=== PATIENT | female | born 2000 | race Caucasian/White ===

== ENCOUNTER → 2023-10-23 15:14 | Outpatient (CLI) | payer OTHER, SELFPAY ==
--- NOTE | 2023-10-23 | DI.US.S_ITS ---
PROCEDURE: US OB >= 14 WEEKS FETUS INDICATIONS: 20 WEEK ANATOMY SCAN OUTSIDE/PRIOR DATING DATA: Last menstrual period (LMP): June 02, 2023. LMP-based estimated date of delivery (WILLIAM): March 08, 2024. First dating scan (date and location): October 23, 2023. Estimated date of delivery (WILLIAM) from first dating scan: March 04, 2024 TECHNIQUE: Real-time scanning was performed of the fetus, with image documentation and biometric measurements. Endovaginal scanning: Not performed COMPARISON: None. FINDINGS: General: A single living intrauterine gestation is present. Presentation: Vertex. Placenta: Placental position is posterior , without previa. Amniotic fluid index: 14.9 cm, normal range is 5-24 cm. Single deepest vertical pocket is 4.9 cm. heart rate: 141 beats per minute. Maternal cervical canal: 5.3 cm long. Normal lower limit is 2.5 cm. biometrics: Biparietal diameter: 4.9 cm, 20 weeks, 6 days Head circumference: 18.1 cm, 20 weeks, 4 days Abdominal circumference: 15.7 cm, 20 weeks, 6 days Femur length: 3.7 cm, 21 weeks, 4 days Clinically estimated gestational age: 20 weeks, 3 days Composite gestational age from present scan: 21 weeks, 0 days Estimated weight and percentile: 400 g, 82% Anatomic survey: Neuro: Ventricles are non-dilated at less than 10 mm. Cisterna magna is normal at 3-11 mm. Cerebellum is normal in size and morphology. Nuchal skin fold: Normal at less than 6 mm between 14-21 weeks gestational age. Face: Nose and lips, facial profile are normal. Spine: No evidence for spina bifida. Heart: 4-chambered heart is present, with normal ventricular outflow tracts. Diaphragm: Diaphragm is intact. Stomach: Left-sided stomach is present. Kidneys: No hydronephrosis. Normal is less than 5 mm in 2nd trimester, less than 7 mm in 3rd trimester. Cord: 3-vessel cord has orthotopic insertion. Bladder: Normal in size. Extremities: All 4 extremities identified. IMPRESSION: 1. Single live intrauterine gestation with a composite gestational age of 21 weeks, 0 days by today's scan. This is concordant with LMP. 2. No sonographic anatomic abnormalities. We strive to produce accurate, complete, and clear reports of imaging services. To assist us in improving patient care, this report was composed using standard report templates and voice recognition software. Therefore, it may contain abnormal punctuation, insertions and/or omissions. Occasional wrong-word or sound-alike substitutions may occur. Though we review the report and make efforts to correct it, we do recommend that the report be read carefully in proper context to recognize any text inaccuracies. Dictated by: Janeth Griffitsh M.D. on 10/24/2023 at 11:01 Approved by: Janeth Griffiths M.D. on 10/24/2023 at 11:04
--- NOTE | 2023-10-28 23:07 | P.TNLD_ITS ---
Visit Information Visit Information Date of evaluation: 10/28/23 Primary OB Provider: Gavi Waggoner On-call OB Provider: Gavi Waggoner Reason for Evaluation: Yes rupture of membranes Comments/Additional reasons for admission: Jeff is a 23 year old, 21 week . She noticed more than her normal water- like discharge earlier today and started having mild/moderate lower pelvic cramping with one sharp/stabbing UR quadrant episode of pain on her way over to triage. She is worried. Accompanied by a friend. Vital Signs Vital Signs: BP: 117/65 HR: 93 T (temporal): 36.5 RR: 20/min Review of Systems Review of Systems Narrative: All systems are WNL, except for Genitourinary (see HPI). Genitourinary Comments: Denies any vaginal itchiness, redness, or irritation. Exam Const General: cooperative, healthy appearing and anxious Other: Expressed concern about potential rupture of membrane and stress from partner's behavior. External Female Exam: normal external appearance and normal appearance of the urethra Speculum Exam - Vagina: abnormal vaginal discharge (white, cloudy, cottage- cheese like texture. Spots of green/yellow coloring.) and other (erythematous vaginal mucosa) Speculum Exam - Cervix: closed Amniotic Fluid: no fluid (no pooling) Objective Labs Labs: Amnisure: negative Evaluation Evaluation Baseline heart rate: 135 (bpm by doppler per gestational age) Diagnosis, Plan/Disposition Plan/Disposition Plan: Assessment: @ 21w1d presenting to OB triage for suspected rupture of membrane. FHR reassuring Membranes intact Vaginitis Plan: Amnisure Speculum exam performed Nuswab collected for BV/yeast/trich/gc/ct Assessment of FHT with doppler Educated on normal vaginal fluid changes during vs warning signs of vaginal infection and SROM. Instructed to continue to monitor and call CNM number for signs of ROM or worsening pelvic cramps. Plan to review Nuswab result to determine treatment plan
== END ==
LOC: US 15:18
PROVIDERS: PCP Student in an Organized Health Care Education/Training Program; Referring Provider Advanced Practice Midwife; Visit Provider Advanced Practice Midwife
DX: Z03.71 Encounter for suspected problem with amniotic cavity and membrane ruled out (principal); O23.592 Infection of other part of genital tract in pregnancy, second trimester; Z3A.21 21 weeks gestation of pregnancy
CPT/HCPCS: 76811; 84112; G0378

== ENCOUNTER → 2023-10-28 10:12 | Outpatient (CLI) | payer OTHER, SELFPAY | PROVIDERS: PCP Student in an Organized Health Care Education/Training Program; Referring Provider Advanced Practice Midwife; Visit Provider Advanced Practice Midwife | DX: N89.9 Noninflammatory disorder of vagina, unspecified (principal) | CPT/HCPCS: 84112 ==

== ENCOUNTER 2023-12-23 15:59 | Outpatient (CLI) | payer OTHER, SELFPAY ==
--- NOTE | 2023-12-23 16:27 | PM.OBTRLD ---
Visit Information Visit Information Date of evaluation: 12/23/23 Primary OB Provider: Gavi Waggoner On-call OB Provider: Gavi Waggoner Reason for Evaluation: Yes other Comments/Additional reasons for admission: Julia reached out today concerned about a severe headache, blurry vision, pressure in her head, feeling clammy, having nausea and dry heaving. Took 500 mg acetaminphen at 1300 which helped a little bit but wanted to come in for reassurance. Unsure if she ate anything yesterday that could be making her feel sick, but had a busy day shopping with her best friend. Baby has been very active. Vital Signs Vital Signs: BP: 127/59 Pulse: 76 bpm Temp: 98.2 F, temporal Respiratory rate: normal, unlabored Review of Systems Review of Systems Narrative: Negative except as mentioned in HPI. Exam Const General: healthy appearing Skin General: no rashes or lesions noted Neuro General: patient oriented x3, moves all extremities, no focal motor deficits and other (pupils are equal and reactive) Evaluation Evaluation Baseline heart rate: 140 Variability: Moderate (11-25) monitor accelerations: Present Monitor Decelerations: Absent Contraction Frequency (minutes): 0 Category of Tracing: Reactive Comments: SVE not performed Diagnosis, Plan/Disposition Final Diagnosis (1) Supervision of normal first in third trimester: Status: Acute (2) Headache: Status: Acute (3) Normotensive: Status: Acute (4) NST (non-stress test) reactive: Status: Acute Plan/Disposition Plan: NST to confirm fetus doing well. Reviewed ways to manage headache and likely viral infection with OTC meds. More acetaminophen given. Discharge home.
[2023-12-23] MEDS: ACETAMINOPHEN 325 MG TABLET 650 MG PO (16:33)
== END 2023-12-23 16:40 | disposition home or self-care (01) ==
LOC: LABOR 16:04 → OB 12-25 15:05
PROVIDERS: PCP Student in an Organized Health Care Education/Training Program; Referring Provider Advanced Practice Midwife; Visit Provider Advanced Practice Midwife
DX: O26.893 Other specified pregnancy related conditions, third trimester (principal); R51.9 Headache, unspecified; H53.8 Other visual disturbances; Z3A.29 29 weeks gestation of pregnancy
CPT/HCPCS: 59025; G0378; G0379

== ENCOUNTER 2024-01-16 20:14 | Observation (INO) | payer OTHER, SELFPAY ==
--- NOTE | 2024-01-16 20:18 | DI.US.S_ITS ---
PROCEDURE: US OB LIMITED INDICATIONS: Pre term contractions OUTSIDE/PRIOR DATING DATA: Last menstrual period (LMP): 06/02/2023. LMP-based estimated date of delivery (WILLIAM): 03/08/2024. First dating scan (date and location): 10/23/2023. Estimated date of delivery (WILLIAM) from first dating scan: 03/04/2024. The calculations are made using the LMP WILLIAM of 03/08/2024. TECHNIQUE: Real-time scanning was performed of the fetus, with image documentation. Endovaginal scanning: Not performed COMPARISON: Ob ultrasound 10/23/2023. FINDINGS: A single living intrauterine gestation is present. Presentation: Vertex. Placenta: Placental position is posterior fundal, without previa. Amniotic fluid index: 22.3 cm, normal range is 5-24 cm. Single deepest vertical pocket is 8.9 cm. heart rate: 147 beats per minute. Maternal cervical canal: 3.0 cm long. Normal lower limit is 2.5 cm. Clinically estimated gestational age: 32 weeks, 4 days IMPRESSION: Single intrauterine gestation in vertex presentation. GUERA is at the upper limits of normal (90th percentile). Cervical length measures 3.0 cm. Approved by: Priscilla Reveles M.D.,Ph.D. on 01/16/2024 at 21:51
--- NOTE | 2024-01-16 20:53 | P.TNLD_ITS ---
Visit Information Visit Information Date of evaluation: 01/16/24 Primary OB Provider: Gavi Waggoner On-call OB Provider: Gavi Waggoner Reason for Evaluation: Yes non-stress test and Yes pre-term labor Comments/Additional reasons for admission: Julia is a 23 year old at 32w4d by LMP and confirmed by 8 week ultrasound. She is here today complaining of contractions that have been tight and irregular, frequency 6-20 min apart, some more intense than others. Baby has been moving well. She is feeling very anxious overall and more so this week because her parents are coming to visit this weekend. Has always been an anxious person; has her something else to be anxious about. Worried about getting everything done before baby comes. Was on antidepressant and emergency anxiety medication for depression and anxiety in high school; stopped when she became suicidal. Does not remember what medications she was on. Despite the CNM making valid points refuses cervical exam today. Vital Signs Vital Signs: BP 126/65 HR 104 bpm Temp: 98.7 PFSH Medical History (Updated 01/17/24 @ 00:09 by Gavi Waggoner CNM, DERRELL) Anemia complicating in third trimester Anxiety Family History (Updated 01/16/24 @ 21:24 by Gavi Waggoner CNM, DERRELL) Other Cancer Social History (Updated 01/16/24 @ 21:26 by Gavi Waggoner CNM, DERRELL) marital status: household members: spouse lives independently: Yes education level: high school occupational status: unemployed and previously employed current occupational exposures/hazards: No hamzah/taoism: Pentecostalism Smoking Status: Never smoker alcohol intake: former substance use type: marijuana during the past year weight has: increased > 10 lbs well-balanced diet: about half the time additional social history: Dairy intolerance Review of Systems Review of Systems Narrative: All negative except as mentioned in HPI Exam Const General: healthy appearing and anxious Nutritional Appearance: well nourished Orientation: alert, awake and oriented x3 HENMT Head: normal to inspection Other: Face is edematous Chest Chest: normal inspection of the chest Resp Effort & Inspection: normal respiratory effort Skin General: no rashes or lesions noted Lesions: no lesions Trauma: no lacerations or abrasions Wounds: no wounds Hair: normal Neuro General: patient alert, patient awake and patient oriented x3 Cognition: normal cognition Speech: speech normal Gait: normal gait Motor: muscle tone normal throughout Sensory Exam: no sensory deficits noted DTR's: Rt Triceps: 2+, Lt Triceps: 2+, Rt Patellar: 1+ and Lt Patellar: 2+ Extrem General: normal to inspection, full ROM and edema Psych Appearance: grossly normal and well kempt Mental Status: mental status grossly normal Mood: anxious mood (tearful) Affect: anxious affect Objective Labs 01/16/24 20:56 Evaluation Evaluation Baseline heart rate: 135 Variability: Moderate (11-25) monitor accelerations: Present Monitor Decelerations: Absent Contraction Frequency (minutes): 5 Uterine Contraction Intensity: Mild Category of Tracing: Reactive Comments: Cervical Length = 3 cm by ultrasound. GUERA = 22.3 cm Diagnosis, Plan/Disposition Final Diagnosis (1) Supervision of normal first in third trimester: Status: Acute (2) Normotensive: Status: Acute (3) NST (non-stress test) reactive: Status: Acute (4) uterine contractions in third trimester, antepartum: Status: Acute Problem details: Strong recommendation for cervical exam; patient refuses. (5) Anemia affecting in second trimester: Status: Acute Problem details: Diagnosed at 25 weeks (6) Anemia complicating in third trimester: Status: Acute Problem details: Ferritin and CBC ordered tonight. Iron infusions ordered. (7) Anxiety: Status: Acute Plan/Disposition Plan: Ultrasound ordered for cervical length. UA and UC. GC/CT (Aptima) collected. BV, yeast, trich swab collected (Affirm). 1 L LR given IV for hydration. Ferritin and CBC collected d/t iron deficiency anemia during . NST performed. Consulted with Abril Sullivan MD re: plan of care. Rx nifedipine XR Recommend sertraline and/or hydroxyzine to manage anxiety. She declines at this time. Return for iron infusion tomorrow. RTC to clinic Sunday for group care.
[2024-01-16 21:51] LABS: Hemoglobin 10.2 g/dL (12.0-16.0)
[2024-01-16 21:52] LABS: Appearance Urine UA CLEAR; Bilirubin Urine UA NEGATIVE (NEGATIVE); Color Urine UA YELLOW; Glucose Urine UA NEGATIVE (Negative); Ketones Urine UA NEGATIVE (NEGATIVE); Leukocyte Esterase Urine UA 2+ (NEGATIVE); Nitrite Urine UA NEGATIVE (Negative); Occult Blood Urine UA NEGATIVE (Negative); Protein Urine UA NEGATIVE (Negative); Urobilinogen Urine UA 0.2 E.U./dL (0.2)
[2024-01-16 21:59] LABS: pH Urine UA 7.5 (4.5-8.0)
[2024-01-16 22:05] LABS: Bacteria Urine Moderate (10-30); RBC Urine 0-1/HPF (0-5/HPF); Urine Volume 10mL (spun)
[2024-01-16 22:06] LABS: Squamous Epithelial Cell Urine 0-1 /HPF (0-5/HPF); WBC Urine 5-10/HPF (0-5/HPF)
[2024-01-16 22:45] LABS: Ferritin 21 ng/mL (6-137)
[2024-01-18 12:12] LABS: Candida species Negative (Negative); Gardnerella vaginalis Negative (Negative); Trichomoas vaginalis Negative (Negative)
== END 2024-01-17 00:30 | disposition home or self-care (01) ==
LOC: LABOR 20:17
PROVIDERS: Admitting Provider Advanced Practice Midwife; PCP Student in an Organized Health Care Education/Training Program; Referring Provider Advanced Practice Midwife; Visit Provider Advanced Practice Midwife
DX: O47.03 False labor before 37 completed weeks of gestation, third trimester (principal); O99.013 Anemia complicating pregnancy, third trimester; D64.9 Anemia, unspecified; O99.343 Other mental disorders complicating pregnancy, third trimester; F41.9 Anxiety disorder, unspecified; Z3A.32 32 weeks gestation of pregnancy; D50.9 Iron deficiency anemia, unspecified
CPT/HCPCS: 59025; 59050; 76815; 81001; 82728; 85018; 86850; 86900; 86901; 87077; 87086; 87186; 87480; 87510; 87660; 96360; 96361; 96365; G0378; G0379; J1756

== ENCOUNTER 2024-01-28 22:27 | Observation (INO) | payer OTHER, SELFPAY ==
[2024-01-28 23:01] LABS: Appearance Urine UA CLEAR; Bilirubin Urine UA NEGATIVE (NEGATIVE); Color Urine UA YELLOW; Glucose Urine UA NEGATIVE (Negative); Ketones Urine UA NEGATIVE (NEGATIVE); Leukocyte Esterase Urine UA TRACE (NEGATIVE); Nitrite Urine UA NEGATIVE (Negative); Occult Blood Urine UA NEGATIVE (Negative); Protein Urine UA NEGATIVE (Negative); Urobilinogen Urine UA 0.2 E.U./dL (0.2); pH Urine UA 7.5 (4.5-8.0)
[2024-01-28 23:07] LABS: Bacteria Urine Many (>30); RBC Urine None Seen (0-5/HPF); Squamous Epithelial Cell Urine 0-1 /HPF (0-5/HPF); Urine Volume 10mL (spun); WBC Urine 1-5/HPF (0-5/HPF)
[2024-01-28 23:08] LABS: Culture Indicated Urine Specimen Cultured
--- NOTE | 2024-01-28 23:08 | PM.OBTRLD ---
Visit Information Visit Information Date of evaluation: 01/28/24 Comments/Additional reasons for admission: 23 year old at 34 weeks and 2 days by sure LMP concordant with 8wk US presents with left lower quadrant pain to triage. Has been feeling mild cramping all day and was taking it easy all day today. Around 2129 she began to feel intense LLQ pain with pressure. Pain migrated to her right, then back and then eased prior to her arrival. Continues to feel mild cramping with pressure, stopping to breathe when they occur. No vaginal bleeding or leaking of fluid. +FM this evening. care with CNMs complicated by anemia treated with IV Fe, anxiety and UTI at 32 weeks treated with Macrobid (course completed yesterday). Accompanied by her . Vital Signs Vital Signs: BP 129/68, HR 90bpm, T 36.1C temporal PFSH Medical History Anemia complicating in third trimester Anxiety Family History Other Cancer Social History marital status: household members: spouse lives independently: Yes education level: high school occupational status: unemployed and previously employed current occupational exposures/hazards: No hamzah/episcopalian: Catholic Smoking Status: Never smoker alcohol intake: former substance use type: marijuana during the past year weight has: increased > 10 lbs well-balanced diet: about half the time additional social history: Dairy intolerance Review of Systems Review of Systems ROS: Yes All systems reviewed with the patient and are negative except as otherwise documented Exam Vital Signs (past 8 hours): see above Presentation: vertex Objective Labs Labs: Laboratory Results - last 24 hr 01/28/24 22:35 Urine Color Yellow Urine Appearance Clear Urine pH 7.5 Ur Specific [place] 1.010 Urine Protein Negative Urine Glucose (UA) Negative Urine Ketones Negative Urine Occult Blood Negative Urine Nitrate Negative Urine Bilirubin Negative Urine Urobilinogen 0.2 Ur Leukocyte Esterase Trace H Urine RBC None seen Urine WBC 1-5/hpf Ur Squamous Epith Cells 0-1 /hpf Urine Bacteria Many (>30) H Ur Culture Indicated? Specimen cultured Vol Urine Centrifuged 10ml (spun) Evaluation Evaluation Baseline heart rate: 155 Variability: Moderate (11-25) monitor accelerations: Present Monitor Decelerations: Absent Contraction Frequency (minutes): 4 Uterine Contraction Intensity: Mild Category of Tracing: Reactive Cervical dilation (cm): 1.5 Cervical effacement (%): 50 station: -4 Comments: CE at 2330 CE repeated at 0130- unchanged Nifedipine 10mg x 4 doses given CE repeated at 0330- unchanged Diagnosis, Plan/Disposition Final Diagnosis (1) False labor before 37 completed weeks of gestation: Status: Acute Plan/Disposition Plan: Despite 4 doses of nifedipine, her contractions have increased in frequency and intensity. However, there has been no cervical change in 4 hours. Recommended continued observation in the hospital to monitor for labor and Bernadetteee agrees. Continuous toco monitoring. Reassess in 4 hours or sooner, PRN. Will consult OB at that time. OB Disposition: other (observation)
[2024-01-29 01:17] LABS: Strep Grp B PCR NEG for Grp B Strep
[2024-01-29] MEDS: NIFEdipine 10 MG CAPSULE PO ×4 (02:00→03:00)
--- NOTE | 2024-01-29 07:46 | P.TNLD_ITS ---
Visit Information Visit Information Date of evaluation: 01/29/24 Primary OB Provider: Maris Moraes On-call OB Provider: Maris Moraes Reason for Evaluation: Yes pre-term labor Comments/Additional reasons for admission: 23 year old at 34 weeks and 2 days by sure LMP concordant with 8wk US presents with left lower quadrant pain to triage. Has been feeling mild cramping all day and was taking it easy all day today. Around 2129 she began to feel intense LLQ pain with pressure. Pain migrated to her right, then back and then eased prior to her arrival. Upon arrival, she was feelingl mild cramping with pressure, stopping to breathe when they occur. No vaginal bleeding or leaking of fluid. She was initally evaluated in triage for 4 hours with persistent, regular contractions despite nifedipine. Her cervix was unchanged and GBS PCR was negative. Recommendation was made for her to stay overnight for continued observation and she agreed. care with CNMs complicated by anemia treated with IV Fe, anxiety and UTI at 32 weeks treated with Macrobid (course completed yesterday). Accompanied by her . Vital Signs Vital Signs: BP 114/59, HR 99bpm, T 36.8C Temporal PFSH Medical History Anemia complicating in third trimester Anxiety Family History Other Cancer Social History marital status: household members: spouse lives independently: Yes education level: high school occupational status: unemployed and previously employed current occupational exposures/hazards: No hamzah/mandaen: Religion Smoking Status: Never smoker alcohol intake: former substance use type: marijuana during the past year weight has: increased > 10 lbs well-balanced diet: about half the time additional social history: Dairy intolerance Review of Systems Review of Systems ROS: Yes All systems reviewed with the patient and are negative except as otherwise documented Exam Vital Signs (past 8 hours): see above Resp Effort & Inspection: normal respiratory effort and able to speak in complete sentences Auscultation: clear to auscultation bilaterally Cardio Rate: regular rate Rhythm: regular rhythm Presentation: vertex Objective Labs Labs: Laboratory Results - last 24 hr 04/15/24 04/15/24 22:35 23:55 Urine Color Yellow Urine Appearance Clear Urine pH 7.5 Ur Specific [place] 1.010 Urine Protein Negative Urine Glucose (UA) Negative Urine Ketones Negative Urine Occult Blood Negative Urine Nitrate Negative Urine Bilirubin Negative Urine Urobilinogen 0.2 Ur Leukocyte Esterase Trace H Urine RBC None seen Urine WBC 1-5/hpf Ur Squamous Epith Cells 0-1 /hpf Urine Bacteria Many (>30) H Ur Culture Indicated? Specimen cultured Vol Urine Centrifuged 10ml (spun) Group B Strep (PCR) Neg for grp b strep Evaluation Evaluation Baseline heart rate: 150 Variability: Moderate (11-25) monitor accelerations: Present Monitor Decelerations: Absent Contraction Frequency (minutes): 7 Uterine Contraction Intensity: Mild Category of Tracing: Reactive Cervical dilation (cm): 1.5 Cervical effacement (%): 50 station: -4 Diagnosis, Plan/Disposition Final Diagnosis (1) False labor before 37 completed weeks of gestation: Status: Acute Problem details: Cervical exam unchanged x 8 hours Plan/Disposition Plan: Discharge to home with routine precautions Follow-up to clinic as previously scheduled Discussed pre-term contractions v pre-term labor and this level of intensity is her new baseline. Strongly encouraged her to call if contractions reach new level of consistency. OB Disposition: home
== END 2024-01-29 08:10 | disposition home or self-care (01) ==
PROVIDERS: Admitting Provider Nurse Practitioner Obstetrics & Gynecology; PCP Student in an Organized Health Care Education/Training Program; Referring Provider Nurse Practitioner Obstetrics & Gynecology; Visit Provider Nurse Practitioner Obstetrics & Gynecology
DX: O47.00 False labor before 37 completed weeks of gestation, unspecified trimester (principal); Z36.9 Encounter for antenatal screening, unspecified
CPT/HCPCS: 59025; 59050; 81001; 87077; 87081; 87086; 87186; 87653; G0378; G0379

== ENCOUNTER 2024-02-11 18:23 | Observation (INO) | payer OTHER, SELFPAY ==
--- NOTE | 2024-02-11 19:13 | P.TNLD_ITS ---
Visit Information Visit Information Date of evaluation: 02/11/24 Primary OB Provider: Maris Moraes Reason for Evaluation: Yes other Comments/Additional reasons for admission: 23 YO at 36 weeks 2 days by sure LMP concordant with US here for evaluation of fever, body-aches, and weakness for the past 36 hours. Fever of 101 F began yesterday, 02/09 while she was out of town for her baby shower. She took 3 doses of Tylenol 1000mg yesterday. Today, she had a fever of 101.4 F that lowered to 100.6 F an hour after taking 1000 mg Tylenol and she continued to feel body aches and weakness at which time she called and was advised to come in for evaluation. Has been receiving IV Fe in the infusion clinic for iron deficiency anemia in . Last dose is scheduled 02/14/24 at the infusion center. Vital Signs Vital Signs: BP 120/74 HR 101 T 98.3F Oral SpO2 98% on RA PFSH Medical History Anemia complicating in third trimester Anxiety Family History Other Cancer Social History marital status: household members: spouse lives independently: Yes education level: high school occupational status: unemployed and previously employed current occupational exposures/hazards: No hamzah/zoroastrian: Evangelical Smoking Status: Never smoker alcohol intake: former substance use type: marijuana during the past year weight has: increased > 10 lbs well-balanced diet: about half the time additional social history: Dairy intolerance Review of Systems Review of Systems ROS: Yes All systems reviewed with the patient and are negative except as otherwise documented Constitutional Constitutional: Reports body ache(s), Reports chills, Reports fatigue, Reports fever(s), Reports lethargy and Reports malaise Cardiovascular Cardiovascular: Reports pedal edema and Reports dyspnea Respiratory Respiratory: Reports dyspnea Musculoskeletal Musculoskeletal: Reports myalgias Endocrine Endocrine: Reports fatigue Exam Vital Signs (past 8 hours): See above Const General: anxious, ill appearing and lethargic Orientation: alert, awake, oriented to person, oriented to place and oriented to time [facility] Head: normal to inspection Eyes General: appearance normal, both eyes and all related structures Resp Effort & Inspection: labored and symmetric chest movement Auscultation: clear to auscultation bilaterally Cardio Rate: regular rate Rhythm: regular rhythm Heart Sounds: S1 normal and S2 normal Presentation: vertex Objective Labs 02/11/24 19:10 Labs: Evaluation Evaluation Baseline heart rate: 150 Variability: Moderate (11-25) monitor accelerations: Present Monitor Decelerations: Absent Contraction Frequency (minutes): 4 (4-6) Uterine Contraction Intensity: Moderate Category of Tracing: Reactive Cervical dilation (cm): 1 Cervical effacement (%): 50 station: -4 Comments: 1 L LR and final dose of IV iron sucrose was given and will cancel outpatient infusion appointment d/t moderate anemia and to avoid additional COVID+ exposure. 2114 temperature konrad to 102.3F Oral with new sx of nausea and vomiting. 1000mg IV acetaminophen and IV ondansetron were given. 2135 CNM consulted [facility] to review case and recommendation was made for overnight observation. 2142 CNM notifed RN and ordered maintenance IV fluids with Q4 hours VS and NSTs overnight. Diagnosis, Plan/Disposition Final Diagnosis (1) COVID-19 affecting in third trimester: Status: Acute (2) Anemia complicating in third trimester: Status: Acute Problem details: Last dose of IV iron sucrose tonight. (3) False labor before 37 completed weeks of gestation: Status: Acute Problem details: Cervical exam unchanged from 34 week exam Plan/Disposition Plan: 2314 patient reported feeling better and requested to leave AMA. Repeat VS @ 2352: BP 121/56, HR 96bpm, T 99.8F Oral Patient was encouraged to stay, but continued to decline. Discharge to home with strict precautions and when to call re labor or worsening COVID sx: decreased FM, strengthening contractions/labor, difficulty breathing, Temp>102 despite Tylenol use. Recommend Paxlovid Rx x5 days and discussed current [facility] recommendation for this with her risk factors (, BMI>30) and Rx sent to [facility], but patient is unsure if she will take the medication. No Paxlovid available in the hospital to dispense tonight. Recommend rest and recover at home. OLLIE in 2 days is canceled. Pt to follow-up in clinic 02/19/24 for next scheduled appt or sooner PRN worsening sx. OB Disposition: home
[2024-02-11 19:23] LABS: Add Manual Diff / Slide Review NO; Basophils Absolute Auto 0 /uL (0-100); Basophils Percent Auto 0.2 % (0-2); Eosinophils Absolute Auto 0 /uL (0-450); Eosinophils Percent Auto 0.1 % (2-4); Hematocrit 27.7 % (36-46); Hemoglobin 9.6 g/dL (12.0-16.0); Lymphocytes Absolute Auto 1100 /uL (1100-4500); Lymphocytes Percent Auto 10.2 % (25-40); Mean Corpuscular HGB Conc 34.7 % (30-36); Mean Corpuscular Hemoglobin 32.9 PG (26-34); Mean Corpuscular Volume 94.9 fL (80-100); Monocytes Absolute Auto 1000 /uL (0-900); Monocytes Percent Auto 9.1 % (3-14); Neutrophils Absolute Auto 8500 /uL (1500-7000); Neutrophils Percent Auto 80.4 % (50-75); Platelet Count 311 X10^3/uL (150-400); Red Blood Cell Count 2.92 X10^6/uL (4.0-5.2); Red Cell Distribution Width 14.8 % (11.6-14.8); White Blood Cell Count 10.6 X10^3/uL (4.5-11.0)
[2024-02-11 19:45] LABS: Influenza A - CEPHEID Flu A NEGATIVE (NEGATIVE); Influenza B - CEPHEID Flu B NEGATIVE (NEGATIVE); Respiratory Syncytial Virus Negative (Negative)
[2024-02-11 19:52] LABS: COVID-19 CEPHEID 4-PLEX PCR POSITIVE (Negative)
[2024-02-11] MEDS: IRON SUCROSE 300 MG in SODIUM CHLORIDE 0.9% 250 ML 176.667 MG IV (21:19)
[2024-02-11] MEDS: ONDANSETRON 8 MG in SODIUM CHLORIDE 0.9% 50 ML 216 MG IV (22:08)
[2024-02-11 22:12] VITALS: TEMP 39.1
[2024-02-11] MEDS: fentaNYL 100 MCG/2 ML INJ 50 MCG IV (22:12)
[2024-02-11] MEDS: ACETAMINOPHEN IV 1,000 MG/100 ML VIAL 400 MG IV (22:23)
== END 2024-02-12 00:20 | disposition home or self-care (01) ==
LOC: LABOR 18:25
PROVIDERS: Admitting Provider Nurse Practitioner Obstetrics & Gynecology; PCP Student in an Organized Health Care Education/Training Program; Referring Provider Nurse Practitioner Obstetrics & Gynecology; Visit Provider Nurse Practitioner Obstetrics & Gynecology
DX: O98.513 Other viral diseases complicating pregnancy, third trimester (principal); U07.1 COVID-19; O99.013 Anemia complicating pregnancy, third trimester; D64.9 Anemia, unspecified; O47.03 False labor before 37 completed weeks of gestation, third trimester; Z3A.36 36 weeks gestation of pregnancy
CPT/HCPCS: 0241U; 85025; G0378; G0379; J0136; J1756; J2405; J3010

== ENCOUNTER 2024-02-13 20:20 | Inpatient (IN) | payer OTHER, SELFPAY ==
--- NOTE | 2024-02-13 21:04 | PM.OBTRLD ---
Visit Information Visit Information Date of evaluation: 02/13/24 Primary OB Provider: Gavi Waggoner On-call OB Provider: Gavi Waggoner Reason for Evaluation: Yes pre-term labor Comments/Additional reasons for admission: Julia is a 23 year old at 36w4d by LMP and confirmed by 8 week ultrasound. She has been laboring at home most of the day. Contractions have been every 5 minutes since approx 1630, and progressively getting more intense and regular since they started overnight. Julia has been drinking water, eating a smoothie, and tried the bath a couple of times for pain relief. Started paxlovid last night for recent COVID positive result. Temperature at home has varied from normal to 103 F since she went home from triage late 02/11/24. Has been managing with acetaminophen every 6-8 hours. Has mostly been in bed, also. Julia is not coping well with labor and complains of lots of pain, nausea, vomiting. Her , Fletcher, is with her. She is due for paxlovid dose and acetaminophen as she arrives to L&D. Consents to cervical exam, but just wants to get it over with. Consents to morphine rest, IV hydration and IV acetaminophen to treat pain and fever. Vital Signs Vital Signs: BP: 116 /77 T: 38.9 C temporal (102 F) HR 141 bpm SpO2: 99% [facility] Medical History (Updated 02/13/24 @ 21:35 by Gavi Waggoner CNM, [employer]) Anemia complicating in third trimester Anxiety Family History Other Cancer Social History marital status: household members: spouse lives independently: Yes education level: high school occupational status: unemployed and previously employed current occupational exposures/hazards: No hamzah/voodoo: Shinto Smoking Status: Never smoker alcohol intake: former substance use type: marijuana during the past year weight has: increased > 10 lbs well-balanced diet: about half the time additional social history: Dairy intolerance Review of Systems Constitutional Constitutional: Reports weakness Cardiovascular Cardiovascular: Reports dyspnea Respiratory Respiratory: Reports dyspnea Gastrointestinal Gastrointestinal: Reports nausea and Reports vomiting Genitourinary Genitourinary: Reports other (labor pain in lower abdomen and thighs) Neurologic Neurologic: Reports weakness Psychiatric Psychiatric: Reports anxiety Evaluation Evaluation Baseline heart rate: 160 (180 bpm on admission) Variability: Moderate (11-25) (minimal on admission) monitor accelerations: Present Monitor Decelerations: Periodic (unable to assess mild decelerations in relationship to contractions due to difficulty picking up contraction monitoring at the time of deceleration) Contraction Frequency (minutes): 2 Uterine Contraction Intensity: Strong/Firm Status: Category ll Cervical dilation (cm): 3 Cervical effacement (%): 75 station: -2 Comments: Bulging bag of water felt on cervical exam CE: /-2/posterior/soft Diagnosis, Plan/Disposition Final Diagnosis (1) COVID-19 affecting in third trimester: Status: Acute Problem details: Symptoms started 02/09, positive test 02/11/24. (2) Anemia complicating in third trimester: Status: Acute Problem details: Last dose of IV iron sucrose 02/11/2024 (3) uterine contractions in third trimester, antepartum: Status: Acute Problem details: (4) Normotensive: Status: Acute (5) Supervision of normal first in third trimester: Status: Acute Plan/Disposition Plan: Admit for observation for at least 4 hours. Insert IV. IV acetaminophen to reduce fever IV LR x 1000 mL bolus IM morphine (15 mg) and vistaril (50 mg) for pain relief. Reviewed that we do not recommend augmenting labor at this point due to still being pre-term. Plan to recheck cervix in 4 hours or sooner PRN.
--- NOTE | 2024-02-13 21:59 | PM.OBHP.1 ---
OB HPI Date/Time Date of admission: 02/13/24 Date Patient Seen: 02/13/24 Time Patient Seen: 21:59 History of Present Condition Chief complaint: observation of labor : 1 Para: 0 Estimated Date of Delivery: 03/08/24 Estimated Gestational Age (weeks): 36w4d Narrative: Julia Burnett is a 23 year old female at 36w4d by LMP and confirmed by 8 week ultrasound here due to labor and covid positive related fever. See triage note for details. SROM, gushing clear fluid while in triage for observation. History of Present care: good care, initiated at week # (8), number of visits (9) and pounds weight gain (54) Dating criteria: LMP confirmed by 1st trimester US Ultrasounds: normal 1st trimester US and normal mid trimester US Obstetrical complications: other (pre-term contractions, pre-term labor) Medical complications: psychiatric (anxiety, untreated) and other (COVID positive, anemia treated with 4 iron infusions) Preadmission Labs Blood type: O (+) positive -: Antibody screen: negative, Cystic fibrosis screen: negative, GBS status: negative, HBsAG: negative, HIV: negative, HSV 1: unknown, HSV 2: unknown and RPR/VDLR: negative -: Chlamydia screen: not detected and Gonorrhea screen: not detected -: Rubella: immune and Varicella: immune HCT: 27.7 (after 3 doses of IV iron) HCAB: negative PAP: Normal Quad screen: Normal (AFP) 1 hr GTT: 121 Prior (ies) History: None Evaluation Evaluation Baseline heart rate: 170 Variability: Moderate (11-25) monitor accelerations: Present Monitor Decelerations: Absent Contraction Frequency (minutes): 2 Uterine Contraction Intensity: Strong/Firm Status: Category ll Dilation (cm): 3 Effacement (%): 75 Dilation: 3-4 cm Effacement: 60-70% station: -2 Position of cervix: posterior Consistency: soft Hernandez score: 7 Non-invasive Membranes Rupture Test: positive PFSH Medical History (Updated 02/13/24 @ 21:35 by Gavi Waggoner CNM, DERRELL) Anemia complicating in third trimester Anxiety Family History Other Cancer Social History marital status: household members: spouse lives independently: Yes education level: high school occupational status: unemployed and previously employed current occupational exposures/hazards: No hamzah/lutheran: Sabianist Smoking Status: Never smoker alcohol intake: former substance use type: marijuana during the past year weight has: increased > 10 lbs well-balanced diet: about half the time additional social history: Dairy intolerance Meds Home Medications and Allergies Home Medications Medication Instructions Recorded Confirmed Type 1 tab PO DAILY 02/11/24 02/11/24 History Allergies Allergy/AdvReac Type Severity Reaction Status Date / Time No Known Drug Allergies Allergy Verified 12/23/23 16:31 Review of Systems Review of Systems Narrative: See triage note from [facility]. OB Exam Vital signs Blood Pressure: 116/77 Pulse Rate: 141 Respiratory Rate: 20 Temperature: 102.0 F Objective Labs 02/13/24 22:26 Assessment and Plan Assessment and Plan Assessment and Plan narrative: nullip at 36w4d. COVID positive GBS negative Rh positive Early labor Spontaneous rupture of membranes Anemia of FHR Cat 2 Admit to L&D. Epidural as desired; anesthesia notified and on their way. Reviewed okay to augment labor if needed now that membranes are ruptured. Pediatric provider notified about pre-term labor and plan for her to be present at delivery. Reviewed increased risk for baby boy needing NICU transfer due to pre-term and current COVID infection and plan for pediatric provider to be present at delivery with Osmany. Anticipate .
[2024-02-13 22:25] VITALS: BP 116/77; PULSE 141; RESP 20; TEMP 38.9
[2024-02-13 22:33] LABS: Add Manual Diff / Slide Review NO; Basophils Absolute Auto 0 /uL (0-100); Basophils Percent Auto 0.1 % (0-2); Eosinophils Absolute Auto 0 /uL (0-450); Hemoglobin 9.8 g/dL (12.0-16.0); Lymphocytes Absolute Auto 1000 /uL (1100-4500); Lymphocytes Percent Auto 5.3 % (25-40); Mean Corpuscular HGB Conc 33.7 % (30-36); Mean Corpuscular Hemoglobin 32.3 PG (26-34); Mean Corpuscular Volume 95.8 fL (80-100); Monocytes Absolute Auto 1600 /uL (0-900); Monocytes Percent Auto 8.4 % (3-14); Neutrophils Absolute Auto 16400 /uL (1500-7000); Neutrophils Percent Auto 86.2 % (50-75); Platelet Count 327 X10^3/uL (150-400); Red Blood Cell Count 3.03 X10^6/uL (4.0-5.2); Red Cell Distribution Width 15.4 % (11.6-14.8)
[2024-02-13] MEDS: ACETAMINOPHEN IV 1,000 MG/100 ML VIAL 400 MG IV (23:16)
--- NOTE | 2024-02-13 23:25 | P.PCN_ITS ---
[facility] <Darryn Donahue, DO - Last Filed: 02/14/24 11:42> Pre-procedure Procedure: Continuous Lumbar Epidural for L&D Attending OB provider: Gavi Waggoner PMH/ROS narrative: at 36+4, labor, SROM, COVID+, febrile and tachycardiac. Stable respiratory status, with normal SaO2 on RA. No other obstetric or medical comlpications or pertinent hx. ASA Class: III (ASA III due to COVID, , fever) Labs: Hct 29.0 % (36-46) L 02/13/24 22:26 Plt Count 327 X10^3/uL (150-400) 02/13/24 22:26 Medications: Current Medications Generic Name Dose Route Start Last Admin Trade Name Freq PRN Reason Stop Dose Admin Acetaminophen 1,000 mg in 100 mls @ 400 mls/hr 02/13/24 21:02 02/13/24 23:16 Ofirmev IV 400 mls/hr Q6H PRN Administration Fever/Mild Pain (1-3) Morphine Sulfate 15 mg 02/13/24 20:59 Morphine 10 Mg/Ml Inj IM Q4HR PRN Pain, Severe (7-10) Allergies: Allergies Allergy/AdvReac Type Severity Reaction Status Date / Time No Known Drug Allergies Allergy Verified 12/23/23 16:31 Procedure Insertion date: 02/13/24 Insertion time: 23:08 Prep/Local: betadine x3 and 1% lidocaine Interspace: L3-4 Patient position: sitting Needle: 18 gauge Hustead (CSE: 27g Pencan through Hustead, clear CSF, 1mL 0.25% MPF bupiv) Loss of resistance with: saline VINOD at (cm): 5 Catheter placed at SKIN (cm): 11 Catheter in SPACE (cm): 6 Insertion: No CSF, No Blood, No Paresthesia with insertion, No Paresthesia with injection and No Test dose reaction Initial Medications TEST DOSE time: 23:09 TEST DOSE: 1.5% lidocaine with epinephrine 1:200k (mL): 3 BOLUS DOSE time: 23:16 BOLUS DOSE (mL): 4 BOLUS DOSE med: other (infusate) Infusion INFUSION: 0.125% bupivacaine and with fentanyl 2 mcg/mL Initial rate (mL/hr): 10 Subsequent interventions: 02:05 low block, contractions still painful in spite of PCEA. 6mL 2-chloroprocaine, positioned flat. Catheter intact, 10cm at skin. Good relief until 0300. Bolus repeated with 50mcg fentanyl + 5mL 0.25% bupiv. Good relief until 0550. 50mcg fentanyl+5mL 2-chloroprocaine, discussed replacing epidural, up one level for better control of contraction pain before starting pitocin. Epidural replaced 0615. Procedure as above, L2-3, CSE, 27g Pencan with 0.5mL 0.25%, no blood/paresthesia/CSF with insertion, negative test 1.5% lido w/epi. VINOD at 5, catheter to 11cm at skin. Infusion as above at 10mL/h. 11:20 bolus 5mL 0.25%, feeling pelvic pain with contractions. 8cm per RN. Post-procedure Anesthesia date START: 02/13/24 Anesthesia time START: 22:55 <Colleen Sheehan MD - Last Filed: 02/14/24 21:28> Infusion Subsequent interventions: 02:05 low block, contractions still painful in spite of PCEA. 6mL 2-chloroprocaine, positioned flat. Catheter intact, 10cm at skin. Good relief until 0300. Bolus repeated with 50mcg fentanyl + 5mL 0.25% bupiv. Good relief until 0550. 50mcg fentanyl+5mL 2-chloroprocaine, discussed replacing epidural, up one level for better control of contraction pain before starting pitocin. Epidural replaced 0615. Procedure as above, L2-3, CSE, 27g Pencan with 0.5mL 0.25%, no blood/paresthesia/CSF with insertion, negative test 1.5% lido w/epi. VINOD at 5, catheter to 11cm at skin. Infusion as above at 10mL/h. 11:20 bolus 5mL 0.25%, feeling pelvic pain with contractions. 8cm per RN. 1428 Pt c/o pain and pressure low pelvis with contractions. No temperature change with alcohol testing for level, but she and nurse report good relief with last bolus. BP 127/66. Bolus at 1430 5 ml 2%lido with 50 mcg fentanyl. Infusion increased to 14 ml/hr. Some relief with this, and some truncal itching, though still c/o pain and a lot of pressure in low pelvis and rectum. Modest BP drop with bolus to 112/59. Discussed with nurse possible addition of nitrous for better pain relief. Also reiterated to pt that the pressure sensation would persist. 1600 P c/o sig pressure and pain He is pushing right on my tail bone. I need to push. Bolus 10 ml from epidural pump w/o relief. Pt states N2O providing no relief. Total of 10 ml 2% lido and 50 mcg fentanyl (11 ml total) given. Te mperature change at T12. Modest relief with contractions. Continue infusion 14 ml/hr. Remains 7 cm dilated. Post-procedure Anesthesia date END: 02/14/24 Anesthesia time END: 21:26 Post-procedure Anesthesia Assessment: Yes CV function: HR/BP stable, Yes Resp function: RR/sat/airway adequate, Yes Post-op hydration adequate, Yes Pain control adequate, Yes Nausea & vomiting absent, Yes Temperature > 36 C, Yes Mental status appropriate and No Anesthesia complications
[2024-02-14] MEDS: ONDANSETRON 4 MG/2 ML INJ IV ×3 (00:16→10:05)
[2024-02-14] MEDS: CALCIUM CARBONATE 500 MG TAB 1000 MG PO ×2 (00:16→06:32)
[2024-02-14 00:45] LABS: Add Manual Diff / Slide Review NO; Basophils Absolute Auto 0 /uL (0-100); Basophils Percent Auto 0.1 % (0-2); Eosinophils Absolute Auto 0 /uL (0-450); Hematocrit 28.7 % (36-46); Hemoglobin 9.6 g/dL (12.0-16.0); Lymphocytes Absolute Auto 900 /uL (1100-4500); Lymphocytes Percent Auto 4.8 % (25-40); Mean Corpuscular HGB Conc 33.5 % (30-36); Mean Corpuscular Hemoglobin 32.2 PG (26-34); Mean Corpuscular Volume 96.3 fL (80-100); Monocytes Absolute Auto 1900 /uL (0-900); Monocytes Percent Auto 9.9 % (3-14); Neutrophils Absolute Auto 16200 /uL (1500-7000); Neutrophils Percent Auto 85.2 % (50-75); Platelet Count 307 X10^3/uL (150-400); Red Blood Cell Count 2.98 X10^6/uL (4.0-5.2); Red Cell Distribution Width 15.5 % (11.6-14.8)
[2024-02-14] MEDS: fentaNYL 100 MCG/2 ML INJ 50 MCG IV (00:46)
--- NOTE | 2024-02-14 02:27 | PM.OBPNLAB ---
Date/Time Date Patient Seen: 02/14/24 Time Patient Seen: 02:15 Pain Control Pain control: epidural Comments: Julia's epidural has not been as effective as she has wanted it to be. Anesthesia just went in to help make her more comfortable, and she is resting well. Tender skin due to fever. Unsure about pitocin; asked for some time to decide. Pelvic Exam Dilation (cm): 4 Effacement (%): 90 station: -2 Amniotic membrane status: Ruptured (since 213802/13/24 (4.5 hours)) Contractions Contractions on admission: regular Monitor mode: External Contraction frequency (min): 5 (irregular, difficult to monitor) Contraction intensity: Strong/Firm Status status: Category ll Heart Rate Baseline: 140 Monitor Accelerations: Present Monitor Decelerations: Absent Monitor Variability: Moderate Assessment and Plan Comments: at 36w5d GBS neg COVID positive, febrile Early labor Epidural in place FHR Cat 1 Recommend pitocin augmentation due to SROM x 4+ hours and spaced out contractions. Julia will consider. Zofran q 4 hours for nausea. Repeat acetaminophen q 6 hours due to COVID and fever Paxlovid due 0830; patient to take her own medication due to not available in inpt pharmacy Recheck cervix PRN or in 3-4 hours.
[2024-02-14] MEDS: ACETAMINOPHEN IV 1,000 MG/100 ML VIAL 400 MG IV ×3 (05:11→17:48)
--- NOTE | 2024-02-14 06:00 | PM.OBPNLAB ---
Date/Time Date Patient Seen: 02/14/24 Time Patient Seen: 06:00 Pain Control Pain control: epidural (not giving full coverage so being replaced) Comments: Jubilee still uncomfortable in abdomen with epidural.Also having significant nausea and heartburn. Pelvic Exam Dilation (cm): 4 Effacement (%): 90 station: -2 Amniotic membrane status: Ruptured (since 213802/13/24 (4.5 hours)) Comments: Exam not repeated Contractions Monitor mode: External Contraction frequency (min): 3 Contraction duration (min): 1 Contraction pattern: Regular Contraction intensity: Strong/Firm Status status: Category l Heart Rate Baseline: 130 Monitor Accelerations: Present Monitor Decelerations: Absent Monitor Variability: Moderate Assessment and Plan Comments: at 36w5d GBS neg COVID pos FHR Cat 1 Early labor ROM x 8 hours Acid reflux and nausea Epidural being replaced. Continue acetaminophen q 6 hours to manage COVID fever and aches/pains Zofran, pepcid and tums, PRN Encourage rest Plan for SVE once comfortable. Anticipate .
[2024-02-14] MEDS: FENT 2MCG/ML BUPIV 0.125% EPI 200 MCG/100 ML PLAST..BAG 12 MCG EPIDURAL ×4 (06:30→18:17)
[2024-02-14] MEDS: FAMOTIDINE 20 MG/2 ML VIAL IV (06:33)
[2024-02-14] MEDS: LACTATED RINGERS 1,000 ML 100 ML IV (09:16)
--- NOTE | 2024-02-14 09:17 | PM.OBPNLAB ---
Date/Time Date Patient Seen: 02/14/24 Time Patient Seen: 09:00 Pain Control Pain control: epidural Comments: Julia is finally feeling comfortable after epidural was replaced. She took her Paxlovid at approx. 0830 this AM. She plans to rest for the next few hours. and her mother are in the room. Pelvic Exam Dilation (cm): 6 Effacement (%): 90 station: -1 Amniotic membrane status: Ruptured (since 213802/13/24 (4.5 hours)) Comments: Vital signs: BP: 114/66 HR: 103 bpm SpO2: 100% Temp: 35.5 C Contractions Monitor mode: External Contraction frequency (min): 3 Contraction duration (min): 1 Contraction pattern: Regular Contraction intensity: Strong/Firm Status status: Category l Heart Rate Baseline: 125 Monitor Accelerations: Present Monitor Decelerations: Absent Monitor Variability: Moderate Assessment and Plan Assessment: active labor Plan: continuous present management Comments: Assessment: Active labor of pre-term nullip COVID positive GBS negative SROM x 11 hours Pain well managed with epidural Plan: Continue expectant management Cervical exam performed with consent. Reviewed that pitocin is not needed at this time; will reassess in 3-4 hours or PRN Recommend sleeping now. NSVB anticipated
[2024-02-14] MEDS: LACTATED RINGERS 1,000 ML 1000 ML IV (16:47)
[2024-02-14] MEDS: OXYTOCIN PREMIX 30 UNIT/500 ML PLAST..BAG IV (16:47)
--- NOTE | 2024-02-14 18:01 | PM.OBPNLAB ---
Date/Time Date Patient Seen: 02/14/24 Time Patient Seen: 17:30 Pain Control Pain control: epidural Comments: Pt is frustrated that her is not in line with her plan and continues to be resistant to RN and CNM recommendations for pitocin augmentation and position changes. She is not coping well and is sometimes not responsive. At CNM's recommendation, her mother and are encouraging her to accept recommendations for care to progress towards NSVB. Pelvic Exam Dilation (cm): 7 Effacement (%): 100 station: 0 Amniotic membrane status: Ruptured (since 213802/13/24 ) Contractions Monitor mode: External Pitocin rate (mU/min): 2 Contraction frequency (min): 3 Contraction duration (min): 1 Contraction pattern: Regular Contraction intensity: Strong/Firm Status status: Category l Heart Rate Baseline: 175 Monitor Accelerations: Absent Monitor Decelerations: Absent Monitor Variability: Moderate Assessment and Plan Comments: Assessment: Active labor of nullip COVID positive GBS negative SROM at 2138 on 02/13/2024 (20 hours) Pain is not well managed with epidural, despite bolus from anesthesia Labor augmentation with pitocin Plan: Continue pitocin augmentation Consult with pt's and mother to determine best way to support an NSVB Consult with OB and consider IUPC if there is not any change with next CE in 2 hours NSVB anticipated
--- NOTE | 2024-02-14 20:38 | SUR.OPER ---
Supine on padded OR bed, head on pillow, arms secured on padded arm boards at <90 degrees abduction, legs uncrossed, safety belt at thigh, tape over blanket over lower legs.
--- NOTE | 2024-02-14 21:18 | P.CONS_ITS ---
History of Present Illness Consult details Date Patient Seen: 02/14/24 Time Patient Seen: 19:55 Chief complaint: Reason for consult: Maternal fever and tachycardia, tachycardia Requesting provider: Gavi Waggoner Narrative: Patient is a 23-year-old 1 para 0 at 36-,4/7 weeks gestation who presented last evening with labor and positive COVID. She had a fever up to 102 which was then controlled with oral acetaminophen every 6 hours. She then had a spontaneous rupture of membranes. She received an epidural for pain management and had to have it replaced once and several boluses. Recently there was maternal tachycardia up to the 120s and tachycardia up to 180s to 200s. Mom's spiked a temperature to 105. Patient's care was fairly unremarkable. She was in and out of triage over the last several days due to contractions. Unremarkable labs. 1 hour glucose 121. White blood count on admission 19,000. Rapid response called when patient has spiked a temp to 105 and began having some delirium. Her IV was not functioning properly. She was also due for another dose of acetaminophen. Meds Home Medications and Allergies Home Medications Medication Instructions Recorded Confirmed Type 1 tab PO DAILY 02/11/24 02/15/24 History Allergies Allergy/AdvReac Type Severity Reaction Status Date / Time No Known Drug Allergies Allergy Verified 12/23/23 16:31 Exam Narrative Exam Narrative: Generally: Patient is sitting up in bed, pale, moderate distress due to the pain of the contractions. heart rate tracing: Baseline heart rate 180s to 200s. Minimal to moderate [id number]-[id number] variability. No significant decelerations. Contractions every 2-3 minutes. Vaginal exam: Complete dilation but -2 station. Occiput posterior presentation. Objective Labs 02/15/24 06:31 02/14/24 19:30 Labs: Laboratory Results - last 24 hr 02/13/24 02/13/24 22:26 23:59 WBC 19.0 H 19.0 H RBC 3.03 L 2.98 L Hgb 9.8 L 9.6 L Hct 29.0 L 28.7 L MCV 95.8 96.3 MCH 32.3 32.2 MCHC 33.7 33.5 RDW 15.4 H 15.5 H Plt Count 327 307 Neut % (Auto) 86.2 H 85.2 H Lymph % (Auto) 5.3 L 4.8 L [place] % (Auto) 8.4 9.9 Eos % (Auto) 0.0 L 0.0 L Baso % (Auto) 0.1 0.1 Neut # (Auto) 36262 H 76357 H Lymph # (Auto) 1000 L 900 L [place] # (Auto) 1600 H 1900 H Eos # (Auto) 0 0 Baso # (Auto) 0 0 Blood Type O Positive Antibody Screen Negative PFSH Medical History (Updated 02/13/24 @ 21:35 by Gavi Waggoner CNM, DERRELL) Anemia complicating in third trimester Anxiety Family History Other Cancer Social History marital status: household members: spouse lives independently: Yes education level: high school occupational status: unemployed and previously employed current occupational exposures/hazards: No hamzah/buddhist: Yazdanism Tobacco & Substance Use Smoking Status: Unknown if ever smoked alcohol intake: former substance use type: marijuana Diet and Exercise during the past year weight has: increased > 10 lbs well-balanced diet: about half the time Additional Social History additional social history: Dairy intolerance Assessment & Plan Assessment & Plan narrative: Assessment: 23-year-old 1 para 0 at 36-,4/7 weeks gestation with maternal and tachycardia and maternal fever Positive COVID-19 Status post spontaneous rupture of membranes 22 hours ago Group B strep negative Plan: Urgent primary low-transverse section with an attempt at spinal anesthesia, possible general endotracheal anesthesia Pediatrics notified We will culture maternal and sides of the placenta Urine and blood cultures already sent The risks, benefits, and alternatives to the procedure were explained to the patient and her . The risks including bleeding, infection, injury to the bowel, bladder, or ureters. She understands these risks and agrees to proceed. A full par Q was held and consent form was signed. Azithromycin 500 mg IV x1, Ancef 3 g IV x1 We will obtain cord pH Time Spent With Patient Time with patient: less than 30 minutes
--- NOTE | 2024-02-14 21:19 | P.OP_ITS ---
Operative Date/Time/Diagnoses Date of procedure: 02/14/24 Time of procedure: 21:19 Pre-op diagnosis: Maternal fever in labor Covid + tachycardia Prolonged Stage 1 of labor Direct OP presentation Post-op diagnosis: same Procedure & Clinicians Procedure: Primary low transverse C section Same procedure as scheduled: Yes Indications: 23-year-old 1 para 0 at 36-,4/7 weeks gestation with maternal and tachycardia, maternal fever, slow progression of labor Inadequate pain management Surgeon: Stephanie Mendieta Yes if Unassisted: No Reel Blade Bender Furnace Tender: Gavi Waggoner Reason for Reel Blade Bender Furnace Tender: The administrative assistant receptionist was necessary to retract upon entry into the abdomen and uterus. She assisted with delivery of the with fundal pressure. She assisted with closure with retraction, clipping of suture, and closure of the contralateral fascia. Anesthesia Type: Spinal (with Duramorph) Operative Notes Findings: Live male infant in the direct OP presentation Closure Type: primary Specimen(s): cord blood, cord pH, placenta and other (cultures of maternal/ side of placenta (aerobic and anaerobic)) Intraoperative meds administered: Duramorph, Ketorolac and Pitocin Applied: Catheter (to continuous drainage) Estimated Blood Loss (mL): 250 Blood products transfused: none Procedure in detail: The patient was taken to the operating room where she was placed in the seated position. Spinal anesthesia was administered. She was then placed in the dorsal supine position with a leftward tilt. She was prepped and draped in the usual sterile fashion. A timeout was performed. After spinal analgesia was found to be adequate, a Pfannenstiel skin incision was made 2 fingerbreadths above the pubic symphysis and carried through to the underlying layer fascia. The fascia was nicked in the midline, and the incision extended bilaterally with the Landin scissors. The superior aspect of the fascial incision was grasped with a [place] clamps, elevated, and the underlying rectus muscles dissected off sharply and bluntly. Attention was then turned to the inferior aspect of this incision which in a similar fashion was grasped with a Robyn clamps, elevated, and the underlying rectus muscles dissected off sharply and bluntly. The rectus muscles were in the midline. The peritoneum was identified, grasped between 2 hemostats, and entered sharply with the Metzenbaum scissors. This incision was extended superiorly and inferiorly with good visualization of the bladder. The bladder blade was inserted. The vesicouterine peritoneum was identified, grasped with the pickup, and entered sharply with the Metzenbaum scissors. This incision was extended bilaterally, and the bladder flap was created digitally. The bladder blade was reinserted. The lower uterine segment was incised in a transverse fashion with the scalpel. Upon entering the amniotic sac there was a small amount of clear amniotic fluid. The infant's head was delivered without difficulty in the direct occiput posterior presentation. The nose and mouth were suctioned with bulb suction. The remainder of the body delivered without difficulty. The cord was double clamped and cut. The was handed off to waiting RN, RT, and Peds. Cord bloods were obtained. A piece of cord for cord pH was obtained. The placenta was delivered by expression. The uterus was cleared of all clots and debris. The uterine incision was repaired with #1 chromic in a running interlocking fashion, and a second layer the same suture was used for an imbricating layer. Hemostasis was achieved. The tubes and ovaries were examined and were found to be normal. The gutters were cleared of all clots and debris. The parietal peritoneum was closed using 2-0 Vicryl in a running fashion. The fascia was reapproximated using 0 Vicryl in a running fashion. Subcutaneous layer was copiously irrigated with warm normal saline. 6 simple interrupted sutures of 3- 0 Vicryl were placed to reapproximate the subcutaneous layer. The skin was closed with 4-0 Monocryl in a subcuticular fashion. Steri-Strips were placed. An Aquacel dressing was placed. The uterus was expressed of a small amount of old blood. Sponge, lap, and instrument counts were correct x-2. The patient tolerated the procedure well, and was taken to PACU in stable condition. Complications: none Baby 1: Gender: Male Presentation: vertex Position: Occiput Posterior Placental Delivery Description: Expressed Cord Vessel Description: 3 Vessels, Nuchal Cord (loose x 1), Loose and Clamped/Cut score (1 min): 2 score (5 min): 3 score (10 min): 5 weight: 8 lb 13 oz Narrative: Cord pH Arterial: 7.08 Venous: 7.19 Post-operative Condition: stable Disposition: PACU Aftercare: routine postop
--- NOTE | 2024-02-14 21:27 | P.PNOB_ITS ---
Date/Time Date Patient Seen: 02/14/24 Time Patient Seen: 17:30 Pain Control Comments: Overview: Pre-term contractions throughout 3rd trimester. Cervix closed and long 02/10/24 in triage. Covid symptoms began 02/10/2024 with official diagnosis with PCR 02/11/2024. Seen in triage with temperature of 102 managed with IV acetaminophen. Took acetaminophen to manage fever until readmission 02/13/24 at 8 pm when temp was again 102 and both mother and fetus tachycardic but easily managed with IV acetaminophen. Contractions increased approx 0300 02/13/24 and when admitted that night, cervical exam was 3/75/-2. SROM, clear fluid at 2139. Epidural placed soon after with difficulty all night getting her comfortable, even after several boluses, so epidural replaced approx 0600. Comfortable for a while but then dissatisfied with pelvic pressure. Not easily persuaded to do p osition changes. Recommended pitocin augmentation initially at 0900 when CE was 6/90/-1; declined when recommended strongly by CNM and RN at several separate occasions after that. 1532 maternal temp 36.7 C (98 F). Discussion with and mother about risks to mom and baby and how to best help Julia to accept help and recommendations with hopes to avoid section. 1642 CNM exam: 0 station 1648 pitocin augmentation initiated and position changes recommended 1725 FHR increased from baseline 155 to baseline 174 bpm, maternal HR 125 baseline 1745 acetaminophen due 1800 RN alerted CNM that IV fell out and charge nurse went in to replace IV [address] Clancy by phone regarding plan of care re: asynclitic presentation of OP baby, slow cervical change; recommends IUPC to be placed. 1899 IUPC inserted, CE /0 with FHR baseline 185 bpm 1902 FHR baseline 200 bpm with moderate variability 1903 maternal temperature 37.2 (98.9F) axillary by RN [address], running LR and acetaminophen. CBC with diff drawn and sent to lab/ordered by CNM 1914 Julia appears very pale, disoriented, confused & communicating incoherently. Wanted to be smooshed again and I want to see my baby. CNM check oral temp: 105.2 F. . 1917 RAPID RESPONSE called and 2nd IV placed, CMP, lactate and blood gasses collected 1923 Dr. Clancy called and asked to come in 1929 patient covered with cool cloths and ice packs to bring her fever down 1939 Dr. Clancy present and consenting patient to section 1952 patient to OR. See Dr. Clancy's note for details. Pelvic Exam Dilation (cm): 10 Effacement (%): 100 station: 0 Amniotic membrane status: Ruptured (since 213802/13/24 ) Comments: Dilation complete in OR; proceeded with due to possible sepsis and high station. Contractions Monitor mode: External Contraction frequency (min): 3 Contraction pattern: Regular Contraction intensity: Strong/Firm Status status: Category l
--- NOTE | 2024-02-14 21:28 | SUR.PHASEII ---
Patient directly to [facility] with Anesthesia and L&D nurses in stable condition; Anesthesia providing report to receiving RN
[2024-02-14 22:27] LABS: Add Manual Diff / Slide Review NO; Basophils Absolute Auto 0 /uL (0-100); Basophils Percent Auto 0.1 % (0-2); Eosinophils Absolute Auto 100 /uL (0-450); Eosinophils Percent Auto 0.6 % (2-4); Hematocrit 31.5 % (36-46); Hemoglobin 10.4 g/dL (12.0-16.0); Lymphocytes Absolute Auto 500 /uL (1100-4500); Lymphocytes Percent Auto 4.4 % (25-40); Mean Corpuscular HGB Conc 32.9 % (30-36); Mean Corpuscular Hemoglobin 32.2 PG (26-34); Monocytes Absolute Auto 100 /uL (0-900); Monocytes Percent Auto 1.3 % (3-14); Neutrophils Absolute Auto 10000 /uL (1500-7000); Neutrophils Percent Auto 93.6 % (50-75); Platelet Count 297 X10^3/uL (150-400); Red Blood Cell Count 3.22 X10^6/uL (4.0-5.2); Red Cell Distribution Width 15.6 % (11.6-14.8); White Blood Cell Count 10.7 X10^3/uL (4.5-11.0)
[2024-02-14 22:30] LABS: Lactate (Lactic Acid) 3.1 mmol/L (0.7-2.1)
[2024-02-14 22:32] LABS: Alanine Aminotransferase 19 IU/L (<35); Albumin 3.6 g/dL (3.5-5.0); Albumin Globulin Ratio 1.2 (1.0-2.8); Alkaline Phosphatase 166 U/L (38-126); Aspartate Aminotransferase 31 IU/L (14-36); BUN Creatinine Ratio 4.5 (6-22); Bilirubin Total 0.4 mg/dL (0.2-1.3); Blood Urea Nitrogen 8 mg/dL (7-17); Calcium 10.3 mg/dL (8.4-10.2); Chloride 109 mmol/L (98-107); Estimated Glomerular Filt Rate 41 mL/min (>60); Globulin 3.1 g/dL (1.7-4.1); Glucose 88 mg/dL (70-100); HEMOLYSIS < 15 (0-50); Potassium 3.8 mmol/L (3.4-5.1); Sodium 130 mmol/L (137-145); Total Protein 6.7 g/dL (6.3-8.2)
[2024-02-14 22:45] LABS: Carbon Dioxide 8 mmol/L (22-32)
[2024-02-14 23:57] LABS: Reflexed Lactate in 2 Hours Y
[2024-02-15 00:57] LABS: Lactate 2HR (Lactic Acid Rflx) 0.9 mmol/L (0.7-2.1)
[2024-02-15] MEDS: KETOROLAC 30 MG/ML VIAL IV ×3 (02:47→15:08)
[2024-02-15] MEDS: ACETAMINOPHEN 325 MG TABLET 650 MG PO ×2 (05:03→13:34)
[2024-02-15 06:38] LABS: Add Manual Diff / Slide Review NO; Basophils Absolute Auto 0 /uL (0-100); Basophils Percent Auto 0.2 % (0-2); Eosinophils Absolute Auto 200 /uL (0-450); Eosinophils Percent Auto 0.8 % (2-4); Hemoglobin 10.1 g/dL (12.0-16.0); Lymphocytes Absolute Auto 700 /uL (1100-4500); Lymphocytes Percent Auto 3.2 % (25-40); Mean Corpuscular HGB Conc 33.7 % (30-36); Mean Corpuscular Hemoglobin 32.3 PG (26-34); Mean Corpuscular Volume 95.9 fL (80-100); Monocytes Absolute Auto 1300 /uL (0-900); Monocytes Percent Auto 6.2 % (3-14); Neutrophils Absolute Auto 18500 /uL (1500-7000); Neutrophils Percent Auto 89.6 % (50-75); Platelet Count 241 X10^3/uL (150-400); Red Blood Cell Count 3.13 X10^6/uL (4.0-5.2); Red Cell Distribution Width 15.3 % (11.6-14.8); White Blood Cell Count 20.6 X10^3/uL (4.5-11.0)
[2024-02-15] MEDS: FERROUS SULFATE 325 MG TABLET PO (08:59)
[2024-02-15] MEDS: PRENATAL VIT,CALC/IRON/FOLIC 1 TABLET 1 TAB PO (09:00)
[2024-02-15] MEDS: DOCUSATE 100 MG CAPSULE PO (09:00)
--- NOTE | 2024-02-15 18:01 | PM.OBPN.1 ---
Subjective - OB Subjective Patient comments: no complaints, pain well controlled, tolerating diet and flatus present baby status: NICU feeding status: pumping and storing Date Patient Seen: 02/15/24 Time Patient Seen: 12:15 Interval history: Patient is a 23-year-old 1 para 0101 postop day # 0-1 status post an urgent primary section. Patient is COVID positive. Baby was transferred to the NICU last evening. Her pain is well controlled. She is feeling much better. She is tolerating a diet. Her catheter has been removed, but she has not voided as of yet. She is ambulating with assistance. No nausea or vomiting. Exam Narrative Exam Narrative: Generally: Patient is standing in the room, no acute distress Lungs: Clear to auscultation bilaterally Cardiovascular: Regular rate and rhythm Fundus: Firm at U -1 Incision: Clean dry and intact with Aquacel dressing Extremities: Negative Homans, 1+ edema Objective Labs 02/15/24 06:31 02/14/24 19:30 Labs: Laboratory Results - last 24 hr 02/14/24 02/15/24 02/15/24 19:30 00:35 06:31 WBC 10.7 20.6 H D RBC 3.22 L 3.13 L Hgb 10.4 L 10.1 L Hct 31.5 L 30.0 L MCV 98.0 95.9 MCH 32.2 32.3 MCHC 32.9 33.7 RDW 15.6 H 15.3 H Plt Count 297 241 Neut % (Auto) 93.6 H 89.6 H Lymph % (Auto) 4.4 L 3.2 L [place] % (Auto) 1.3 L 6.2 Eos % (Auto) 0.6 L 0.8 L Baso % (Auto) 0.1 0.2 Neut # (Auto) 98707 H 25181 H Lymph # (Auto) 500 L 700 L [place] # (Auto) 100 1300 H Eos # (Auto) 100 200 Baso # (Auto) 0 0 Sodium 130 L Potassium 3.8 Chloride 109 H Carbon Dioxide 8 L* BUN 8 Creatinine 1.77 H Estimated GFR 41 L BUN/Creatinine Ratio 4.5 L Glucose 88 Lactate 3.1 H 0.9 Calcium 10.3 H Total Bilirubin 0.4 AST 31 ALT 19 Alkaline Phosphatase 166 H Total Protein 6.7 Albumin 3.6 Globulin 3.1 Albumin/Globulin Ratio 1.2 Assessment & Plan Assessment and Plan (1) COVID-19 affecting in third trimester: Problem details: Symptoms started 02/09, positive test 02/11/24. Status: Acute (2) Anemia complicating in third trimester: Problem details: Last dose of IV iron sucrose 02/11/2024 Status: Acute (3) uterine contractions in third trimester, antepartum: Problem details: Status: Acute (4) Normotensive: Status: Acute (5) Supervision of normal first in third trimester: Status: Acute Plan day: 1 plan OB: routine postop care Comments: Assessment: 23-year-old 1 para 0 postop day # 0-1 status post urgent primary section Patient doing very well Cultures negative so far Plan: Routine postop care unless showing signs of infection, then we will begin IV antibiotics Ambulate in the room Time Spent With Patient Time: Total time spent is greater than 50% in coordination of care (as documented) at patient's floor/unit and/or counseling patient: Time with patient: less than 15 minutes
[2024-02-15] MEDS: ACETAMINOPHEN IV 1,000 MG/100 ML VIAL 400 MG IV (19:34)
[2024-02-15] MEDS: IBUPROFEN 600 MG TABLET PO (21:59)
[2024-02-15 22:13] LABS: Add Manual Diff / Slide Review NO; Basophils Absolute Auto 0 /uL (0-100); Basophils Percent Auto 0.1 % (0-2); Eosinophils Absolute Auto 100 /uL (0-450); Eosinophils Percent Auto 0.6 % (2-4); Hematocrit 28.8 % (36-46); Hemoglobin 9.7 g/dL (12.0-16.0); Lymphocytes Absolute Auto 500 /uL (1100-4500); Lymphocytes Percent Auto 3.3 % (25-40); Mean Corpuscular HGB Conc 33.7 % (30-36); Mean Corpuscular Hemoglobin 32.3 PG (26-34); Mean Corpuscular Volume 95.7 fL (80-100); Monocytes Absolute Auto 800 /uL (0-900); Monocytes Percent Auto 5.5 % (3-14); Neutrophils Absolute Auto 13600 /uL (1500-7000); Neutrophils Percent Auto 90.5 % (50-75); Platelet Count 264 X10^3/uL (150-400); Red Blood Cell Count 3.01 X10^6/uL (4.0-5.2); Red Cell Distribution Width 15.4 % (11.6-14.8)
[2024-02-16] MEDS: IBUPROFEN 600 MG TABLET PO ×3 (01:53→14:53)
[2024-02-16] MEDS: ACETAMINOPHEN 325 MG TABLET 650 MG PO ×3 (01:53→14:53)
[2024-02-16] MEDS: PRENATAL VIT,CALC/IRON/FOLIC 1 TABLET 1 TAB PO (09:05)
[2024-02-16] MEDS: DOCUSATE 100 MG CAPSULE PO (09:05)
[2024-02-16] MEDS: FERROUS SULFATE 325 MG TABLET PO (09:05)
--- NOTE | 2024-02-16 09:19 | PM.OBPN.1 ---
Subjective - OB Subjective Patient comments: no complaints and pain well controlled [place] baby status: NICU feeding status: pumping and storing Date Patient Seen: 02/16/24 Time Patient Seen: 08:15 Interval history: 23yo POD2 s/p 1LTCS secondary to arrest of descent/CPD/LGA , intrapartum course c/b +COVID with severe maternal febrile epidsode, prolonged ROM without evidence of chorio at time of delivery. Patient states she feels well today, denies pain, ambulating independently and tolerating full diet without n/v, +flatus. remains in NICU, pt pumping/storing breast milk. Noted episode of subjective shaking/rigors yesterday evening Tm 99.8, sx resolved with IV tylenol and pt has remained afebrile throughout. AM labs this AM with interval improvement. NAEON per RN Exam Vital Signs (past 8 hours): maternal VSS reviewed per OBIX, stable and wnl Tm 99.8, Tc 97.4 Narrative Exam Narrative: resting in bed, on Facetime with partner discussing care of at NICU Const General: cooperative and comfortable Nutritional Appearance: obese Orientation: alert, awake and oriented x3 Limitations: mental status not altered HENMT Head: normal to inspection Mouth: moist mucous membranes Resp Effort & Inspection: normal respiratory effort Auscultation: lung sounds not diminished, no rales, no rhonchi and no wheezes Cardio Pulses: normal peripheral pulses GI Inspection: normal to inspection and obesity Other: incisional dressing in place, c/d/i mild appropriate postoperative tenderness, fundus firm 2 below U Other: deferred, [place] OUT Skin General: no rashes or lesions noted Neuro General: patient alert, patient awake and patient oriented x3 Extrem General: normal to inspection Psych Appearance: grossly normal and well kempt Mental Status: mental status grossly normal Speech and Movement: speech and movement normal Mood: congruent mood Attitude: cooperative Judgment: fair Objective Labs 02/15/24 22:06 02/14/24 19:30 Labs: Laboratory Results - last 24 hr 02/15/24 22:06 WBC 15.0 H RBC 3.01 L Hgb 9.7 L Hct 28.8 L MCV 95.7 MCH 32.3 MCHC 33.7 RDW 15.4 H Plt Count 264 Neut % (Auto) 90.5 H Lymph % (Auto) 3.3 L [place] % (Auto) 5.5 Eos % (Auto) 0.6 L Baso % (Auto) 0.1 Neut # (Auto) 74811 H Lymph # (Auto) 500 L [place] # (Auto) 800 Eos # (Auto) 100 Baso # (Auto) 0 Assessment & Plan Assessment and Plan (1) COVID-19 affecting in third trimester: Problem details: Symptoms started 02/09, positive test 02/11/24. Status: Acute (2) Anemia complicating in third trimester: Problem details: Last dose of IV iron sucrose 02/11/2024 Status: Acute (3) uterine contractions in third trimester, antepartum: Problem details: Status: Acute (4) Normotensive: Status: Acute (5) Supervision of normal first in third trimester: Status: Acute Plan day: 2 plan OB: routine postop care Comments: 23yo POD2 s/p 1LTCS secondary to arrest of descent/CPD/LGA , intrapartum course c/b +COVID with severe maternal febrile epidsode, prolonged ROM without evidence of chorio at time of delivery Postop/ routine care, fully advanced with noted ROBF pain well controlled with current analgesia, continue support PRN (pumping) PNL as per admission documentation +COVID, severe maternal febrile episode without recurrence Borderline febrile episode overnight with appropriate response to pyretics Pt asymptomatic from respiratory standpoint, cont to monitor AM labs with noted improvement, interval decrease in leukocytosis and L shift consistent with viral process, all blood/source cultures NGTD supportive management, low threshold to repeat cultures/CXR/empiric abx in zoroastrian of recurrent febrile epidsode; per deliverying provider/team no evidence of chorio at time of delivery however unable to exclude component thereof secondary to prolonged ROM >24h at time of delivery Contact precautions per protocol Anemia of minimal intraopertaive blood loss (250cc), pt s/p IV sucrose antepartum asymptomatic, cont FeSO4 supplementation on discharge Dispo: pending clinical course, anticipate dc to home tomorrow, POD3 Time Spent With Patient Time: Total time spent is greater than 50% in coordination of care (as documented) at patient's floor/unit and/or counseling patient: Time with patient: 15-24 minutes
--- NOTE | 2024-02-16 19:27 | P.DS_ITS ---
Discharge Providers Provider Date of admission: 02/13/24 20:20 Discharge Date: 02/16/24 Primary care physician: Narcisa Tolliver MD Consults: 02/13/24 23:36 Consult to Anesthesiology Urgent Comment: Consulting Provider: Anesthesiologist Reason for consultation: Epidural Has provider been notified: Yes 02/14/24 23:06 Consult to Journeyman Millwright Routine Comment: Discharge provider: Oksana Romeo MD Summary Hospital Course Date Patient Seen: 02/16/24 Time Patient Seen: 19:00 Diagnoses: PPROM at late term +COVID without respiratory abnormality s/p primary section secondary to arrest of descent unanticipated LGA class 2 maternal obesity Hospital Course: 23yo G1 admitted to facility at 36w4d D=8wk US under are of BOBBY Waggoner after presenting with c/o latent PTL, subsequent PPROM of clear fluid while in triage. Pt had regular PNC throughout her , course notable for maternal anemia s/p IV sucrose x3, maternal class 2 obesity, 1h OGTT 121, GBS negative. Pt had recent confirmed +COVID in facility triage 02/10/23 with MD provider consultation. She was discharged to home with Rx for paxolovid but did not start therapy until evening of 02/12/24. On admission to facility pt endorsed episodic febrile episodes at home to Tm 103 with acetaminophen. Pt received epidural for neuraxial analgesia on HD1, replaced early AM HD2 secondary to inadequate level. Documentation of slow but appropriate interval cervical dilation to active labor, however noted patient resistance throughout labor course to recommendation for pitocin augmentation and positional changes to facilitate descent. [facility] consulted MD provider ([place]) 02/13/23 secondary to non-reassuring surveillance with tachycardia and minimal variability in setting of increasing maternal fever. Patient additionally at this time noted to have transient alteration in mental status with Tc 105. A rapid response was called and blood cultures were obtained that have remained negative throughout admission. Decision made at that time to proceed with primary section secondary to worsening maternal status, arrest of descent in tandem with non-reassuring surveillance. Full transfer of care from CN to MD provider at this time. Procedure performed under spinal anesthesia without complication, EBL 250cc. Initial postoperative labs notable for reactive leukocytosis with L shift that trended downwards with subsequent serial evalution, noted stable hgb 9.7 without s/sx of superimposed acute blood loss anemia. Patient rapidly met all postoperative milestones, ambulating and voiding independently, adequate pain control with non-narcotic analgesia, full ROBF on POD1. Parenteral antibiotics were not initiated following procedure given no evidence of intra-amniotic infection at time of delivery. Pt had additional single episode of shaking/rigors without fever (Tm 99.8) evening of POD1 that resolved with single dose IV tylenol, otherwise asymptomatic following delivery for remainder of hospital course without respiratory/URI complaints or s/sx of endometritis. Pt requested discharge to home on POD2, counseled on medical recommendation to stay for additional overnight observation however pt stated she very much wanted to leave due to stress of being from her . MD presented to bedside for personal review of risks, benefits and alternatives to expedited discharge reviewed. Patient verbalized understanding and in shared decision making model with respect for patient autonomy discharge orders placed. Patient counseled on and in agreement for recommendation of 2wk postoperative course of daily lovenox for VTE prophylaxis, first dose with RN teaching prior to discharge. Planned one week incision check in office, routine f/u with CNM providers thereafter. Pt exclusively , declines initiation of contraception at this time. Peripartum Data Delivery Method: Section Laceration Description: None Procedures: primary low transverse section complications: none [place] 1: Gender: Male Disposition of : NICU Discharge Diagnosis (1) COVID-19 affecting in third trimester: Status: Acute Problem Details: Symptoms started 02/09, positive test 02/11/24. (2) Anemia complicating in third trimester: Status: Acute Problem Details: Last dose of IV iron sucrose 02/11/2024 (3) uterine contractions in third trimester, antepartum: Status: Acute Problem Details: (4) Normotensive: Status: Acute (5) Supervision of normal first in third trimester: Status: Acute (6) delivery, delivered, current hospitalization: Status: Acute Status at Discharge Cognitive/behavioral status at discharge: oriented Functional status at discharge: independent ambulation Overall status at discharge: patient is back to baseline Time Spent with Patient Time attestation: Total time spent providing and/or coordinating discharge services: Time spent: Greater than 30 minutes Objective Labs 02/15/24 22:06 02/14/24 19:30 Labs: Laboratory Results - last 24 hr 02/15/24 22:06 WBC 15.0 H RBC 3.01 L Hgb 9.7 L Hct 28.8 L MCV 95.7 MCH 32.3 MCHC 33.7 RDW 15.4 H Plt Count 264 Neut % (Auto) 90.5 H Lymph % (Auto) 3.3 L [place] % (Auto) 5.5 Eos % (Auto) 0.6 L Baso % (Auto) 0.1 Neut # (Auto) 78400 H Lymph # (Auto) 500 L [place] # (Auto) 800 Eos # (Auto) 100 Baso # (Auto) 0 Discharge Plan Discharge Plan Patient Disposition: Home Provider Discharge Comment: Pt requested expedited discharge POD2. Counseled risks, benefits and alternatives to discharge, verbalized understanding and desires dc to home today Discharge orders & Medications Prescriptions: New acetaminophen 325 mg Tablet 650 mg PO Q6H Qty: 30 0RF docusate sodium 100 mg Capsule 100 mg PO DAILY Qty: 14 0RF ibuprofen 600 mg Tablet 600 mg PO Q6H Qty: 30 0RF Purelan Cream 1 applic topical PRN PRN (Reason: Skin protectant) Qty: 7 3RF oxycodone 5 mg capsule 5 mg PO Q8H PRN (Reason: pain) Qty: 6 0RF enoxaparin [Lovenox] 40 mg/0.4 mL syringe 40 mg SUBCUT DAILY Qty: 8 0RF Continued 1 tab PO DAILY Follow up/Referrals: Narcisa Tolliver MD [Primary Care Provider] - Diet/Activity/Treatments Diet: Regular Activity: No heavy lifting more than 10lbs (baby in carrier) for 4 weeks Skin/Wound/Dressing Care Dressing: keep dressing clean and dry Visit Report/Discharge Packet Instructions: DI for , DI for Prescription Opioid Use, Enoxaparin Injection, DI for Healthy [place] Stand Alone Forms: Patient Portal/API, Stroke Signs & Symptoms Discharge Data Primary Care Provider: Narcisa Tolliver
== END 2024-02-16 20:28 | disposition home or self-care (01) | DRG 786 ==
PROVIDERS: Obstetrics & Gynecology; Admitting Provider Advanced Practice Midwife; PCP Student in an Organized Health Care Education/Training Program; Referring Provider Advanced Practice Midwife; Visit Provider Advanced Practice Midwife
PROC: 10D00Z1 Extraction of Products of Conception, Low, Open Approach (ICD-10-PCS; CPT 59514; principal; 2024-02-14 19:45)
DX: O98.52 Other viral diseases complicating childbirth (principal); O60.14X0 Preterm labor third trimester with preterm delivery third trimester, not applicable or unspecified; U07.1 COVID-19; O76 Abnormality in fetal heart rate and rhythm complicating labor and delivery; Z3A.36 36 weeks gestation of pregnancy; Z37.0 Single live birth; O99.214 Obesity complicating childbirth; E66.01 Morbid (severe) obesity due to excess calories
CPT/HCPCS: 36415; 59050; 80053; 83605; 84112; 85025; 86850; 86900; 86901; 87040; 87070; 87075; 87205; G0379; J0136; J1885; J2274; J2405; J2590; J3010

== ENCOUNTER 2024-02-18 22:00 | Emergency (ER) | payer OTHER, SELFPAY ==
[2024-02-18 22:01] VITALS: BP 122/72; PULSE 62; RESP 22; TEMP 36.4; O2SAT 98; BMI 38.5
--- NOTE | 2024-02-18 22:07 | DI.RAD.S_ITS ---
PROCEDURE: XR CHEST 1V INDICATIONS: chest pain TECHNIQUE: One view of the chest was acquired. COMPARISON: None. FINDINGS: Surgical changes and devices: None. Lungs and pleura: Low lung volumes. No airspace disease or pleural effusion Mediastinum: Heart size is normal allowing for low lung volumes Bones and chest wall: Unremarkable IMPRESSION: Single view radiograph with low lung volumes, limiting evaluation. No acute abnormality. Dictated by: Jeremy Rodriguez M.D. on 02/18/2024 at 22:24 Approved by: Jeremy Rodriguez M.D. on 02/18/2024 at 22:25
[2024-02-18 22:37] VITALS: BP 121/62; PULSE 64; RESP 27; O2SAT 97
[2024-02-18 22:44] LABS: Add Manual Diff / Slide Review NO; Basophils Absolute Auto 0 /uL (0-100); Basophils Percent Auto 0.2 % (0-2); Eosinophils Absolute Auto 100 /uL (0-450); Eosinophils Percent Auto 1.3 % (2-4); Hematocrit 29.4 % (36-46); Hemoglobin 10.1 g/dL (12.0-16.0); Lymphocytes Absolute Auto 1500 /uL (1100-4500); Mean Corpuscular HGB Conc 34.4 % (30-36); Mean Corpuscular Hemoglobin 32.9 PG (26-34); Mean Corpuscular Volume 95.6 fL (80-100); Monocytes Absolute Auto 700 /uL (0-900); Monocytes Percent Auto 7.2 % (3-14); Neutrophils Absolute Auto 7000 /uL (1500-7000); Neutrophils Percent Auto 75.3 % (50-75); Platelet Count 424 X10^3/uL (150-400); Red Blood Cell Count 3.08 X10^6/uL (4.0-5.2); Red Cell Distribution Width 15.3 % (11.6-14.8); White Blood Cell Count 9.4 X10^3/uL (4.5-11.0)
--- NOTE | 2024-02-18 22:45 | ED_ITS ---
HPI - Chest Pain General Chief Complaint: Chest Pain Stated Complaint: chest pain, 4 days post csection Time Seen by Provider: 02/18/24 22:07 Source: patient and family Mode of arrival: Family Vehicle Limitations: no limitations History of Present Illness HPI narrative: 23-year-old female. She was 4 days status post delivery. She stated that the last part of her was complicated by fairly severe reflux disease for which she was taking Tums. Since the delivery she has noticed epigastric abdominal pain which she describes as a burning sensation. This is causing her to have somewhat short of breath. She states that her vaginal bleeding has vastly improved. No change in bowel habits. No vomiting. No cough. She does have lower extremity swelling. She states that the discomfort that she is having occurs every time that she eats or drinks anything. She was on Lovenox and she was taken on a daily basis. She was started on this to ?prevent clots? she was unsure as to why she is on this medicine. She has never had a clot in the past. She has had anemia in the past. She was also diagnosed with COVID just prior to her delivery. Related Data Home Medications Medication Instructions Recorded Confirmed 1 tab PO DAILY 02/11/24 02/15/24 Previous Rx's Medication Instructions Recorded acetaminophen 325 mg tablet 650 mg (2 x 325 mg) PO Q6H #30 tabs 02/16/24 docusate sodium 100 mg capsule 100 mg PO DAILY #14 caps 02/16/24 enoxaparin 40 mg/0.4 mL 40 mg (0.4 mL) SUBCUT DAILY #8 mL 02/16/24 subcutaneous syringe (Lovenox) ibuprofen 600 mg tablet 600 mg PO Q6H #30 tabs 02/16/24 lanolin (Purelan topical cream) 1 applic topical PRN PRN Skin 02/16/24 protectant #7 grams oxycodone 5 mg capsule 5 mg PO Q8H PRN pain #6 caps 02/16/24 sucralfate 100 mg/mL oral 10 ml PO QACHS #420 mL 02/19/24 suspension (Carafate) Allergies Allergy/AdvReac Type Severity Reaction Status Date / Time No Known Drug Allergies Allergy Verified 12/23/23 16:31 Review of Systems Review of Systems Narrative: See HPI Patient History Medical History delivery, delivered, current hospitalization Anemia complicating in third trimester Anxiety Family History Other Cancer Social History marital status: household members: spouse lives independently: Yes education level: high school occupational status: unemployed and previously employed current occupational exposures/hazards: No hamzah/latter-day: Quaker Smoking Status: Unknown if ever smoked alcohol intake: former substance use type: marijuana during the past year weight has: increased > 10 lbs well-balanced diet: about half the time additional social history: Dairy intolerance Smoking Status: Unknown if ever smoked Exam Initial Vital Signs Initial Vital Signs: Vital Signs Temperature 97.6 F 02/18/24 22:01 Pulse Rate 62 02/18/24 22:01 Respiratory Rate 22 02/18/24 22:01 Blood Pressure 122/72 02/18/24 22:01 Pulse Oximetry 98 02/18/24 22:01 Oxygen Delivery Method Room Air 02/18/24 22:01 HENMT Head: normal to inspection and normocephalic Resp Effort & Inspection: normal respiratory effort Auscultation: clear to auscultation bilaterally Cardio Rate: regular rate Rhythm: regular rhythm GI Inspection: non-distended Palpation: No firm, No guarding, No rigid and tender (Epigastric region) Skin General: no rashes or lesions noted Neuro General: patient alert, patient awake, patient oriented x3 and moves all extremities Extrem General: edema Course Orders Ordered: ED Orders 02/18/24 22:07 XR chest 1V Stat EKG-12 Lead Stat 02/18/24 22:34 Complete Blood Count AUTO DIFF Stat Comprehensive Metabolic Panel Stat Lipase Stat Discontinued Medications Al Hydrox/Mg Hydrox/Simethicone 20 ml/ Lidocaine HCl 15 ml 0 ml PO NOW ONE Stop: 02/19/24 00:01 Last Admin: 02/19/24 00:17 Dose: 35 ml Documented By: JEFF Pantoprazole Sodium (Pantoprazole 40 Mg Vial) 40 mg IV NOW ONE Stop: 02/19/24 00:01 Last Admin: 02/19/24 00:17 Dose: 40 mg Documented By: JEFF Vital Signs Vital signs: Vital Signs - 8 hr 02/18/24 22:01 05/06/24 22:37 02/18/24 22:37 Temperature 97.6 F Pulse Rate 62 64 Respiratory Rate 22 27 H Blood Pressure 122/72 121/62 Pulse Oximetry 98 97 Oxygen Delivery Method Room Air Room Air 02/18/24 23:00 02/18/24 23:30 02/19/24 00:25 Temperature Pulse Rate 64 62 64 Respiratory Rate 16 16 16 Blood Pressure 121/62 117/76 126/79 Pulse Oximetry 97 96 98 Oxygen Delivery Method Room Air Room Air Room Air MDM - Chest Pain Medical Records Data Attestation: I reviewed the patient's medical records. Lab Data Attestation: I reviewed the patient's lab results. 02/18/24 22:34 02/18/24 22:34 Labs: Lab Results 02/18/24 Range/Units 22:34 WBC 9.4 (4.5-11.0) X10^3/uL RBC 3.08 L (4.0-5.2) X10^6/uL Hgb 10.1 L (12.0-16.0) g/dL Hct 29.4 L (36-46) % MCV 95.6 (80-100) fL MCH 32.9 (26-34) PG MCHC 34.4 (30-36) % RDW 15.3 H (11.6-14.8) % Plt Count 424 H (150-400) X10^3/uL Neut % (Auto) 75.3 H (50-75) % Lymph % (Auto) 16.0 L (25-40) % Campbell % (Auto) 7.2 (3-14) % Eos % (Auto) 1.3 L (2-4) % Baso % (Auto) 0.2 (0-2) % Neut # (Auto) 7000 (6747-5454) /uL Lymph # (Auto) 1500 (2336-2841) /uL Campbell # (Auto) 700 (0-900) /uL Eos # (Auto) 100 (0-450) /uL Baso # (Auto) 0 (0-100) /uL Sodium 137 (137-145) mmol/L Potassium 3.6 (3.4-5.1) mmol/L Chloride 115 H (98-107) mmol/L Carbon Dioxide 16 L (22-32) mmol/L BUN 25 H (7-17) mg/dL Creatinine 1.13 H (0.52-1.04) mg/dL Estimated GFR > 60 (>60) mL/min BUN/Creatinine Ratio 22.1 H (6-22) Glucose 77 (70-100) mg/dL Calcium 8.5 (8.4-10.2) mg/dL Total Bilirubin 0.3 (0.2-1.3) mg/dL AST 29 (14-36) IU/L ALT 23 (<35) IU/L Alkaline Phosphatase 230 H (38-126) U/L Total Protein 6.3 (6.3-8.2) g/dL Albumin 3.3 L (3.5-5.0) g/dL Globulin 3.0 (1.7-4.1) g/dL Albumin/Globulin Ratio 1.1 (1.0-2.8) Lipase 56 (23-300) U/L Imaging Data Chest x-ray: Radiologist's Impression: PROCEDURE: XR CHEST 1V INDICATIONS: chest pain TECHNIQUE: One view of the chest was acquired. COMPARISON: None. FINDINGS: Surgical changes and devices: None. Lungs and pleura: Low lung volumes. No airspace disease or pleural effusion Mediastinum: Heart size is normal allowing for low lung volumes Bones and chest wall: Unremarkable IMPRESSION: Single view radiograph with low lung volumes, limiting evaluation. No acute abnormality. ECG Data Attestation: I personally reviewed and interpreted this ECG as follows: Interpretation: Sinus rhythm Ventricular rate of 57 Normal axis Normal QRS No ST T wave changes MDM Narrative Medical decision making narrative: Patient is on Lovenox for an unknown reason although I suspect it is because of her COVID positive status and her recent delivery. She was taking this on a daily basis. I have low suspicion that her presenting symptoms today are related to a pulmonary embolism. Chest x-ray shows no signs of pneumonia. Lungs are clear. Clinically does not have pneumonia. Is afebrile. Not hypoxic. Patient's blood pressure is unremarkable. Low suspicion for preeclampsia. She was afebrile. She describes pain in the epigastric region of her abdomen. Her LFTs are unremarkable. Has a negative Calvert's sign. Low suspicion this is gallbladder. Her lipase is unremarkable. Her symptoms occur when she is eating. She was troubled by reflux disease towards the end of her . Suspect a GI source potentially gastric ulcer. Plan will be to discharge home on Carafate. My have her keep all of your scheduled medical appointments. She was given very specific return precautions. She expressed understanding and agreement. Discharge Plan Departure Patient Disposition: Home Clinical Impression: Epigastric abdominal pain Instructions: Gastric Ulcer Activity Restrictions/Additional Instructions: Keep all of your medical appointments. Continue to take all of your medications as directed. I recommend that you use the Carafate as directed for the 1st couple days and then as needed after that. If your symptoms worsen or you develop new symptoms please return to the emergency department for further evaluation. Prescriptions: New sucralfate [Carafate] 100 mg/mL suspension 10 ml PO QACHS Qty: 420 2RF No Action 1 tab PO DAILY acetaminophen 325 mg Tablet 650 mg PO Q6H Qty: 30 0RF docusate sodium 100 mg Capsule 100 mg PO DAILY Qty: 14 0RF ibuprofen 600 mg Tablet 600 mg PO Q6H Qty: 30 0RF Purelan Cream 1 applic topical PRN PRN (Reason: Skin protectant) Qty: 7 3RF oxycodone 5 mg capsule 5 mg PO Q8H PRN (Reason: pain) Qty: 6 0RF enoxaparin [Lovenox] 40 mg/0.4 mL syringe 40 mg SUBCUT DAILY Qty: 8 0RF Referrals: Narcisa Tolliver MD [Primary Care Provider] - Stand Alone Forms: Patient Portal/API
[2024-02-18 22:56] LABS: Alanine Aminotransferase 23 IU/L (<35); Albumin 3.3 g/dL (3.5-5.0); Albumin Globulin Ratio 1.1 (1.0-2.8); Alkaline Phosphatase 230 U/L (38-126); Aspartate Aminotransferase 29 IU/L (14-36); BUN Creatinine Ratio 22.1 (6-22); Bilirubin Total 0.3 mg/dL (0.2-1.3); Blood Urea Nitrogen 25 mg/dL (7-17); Calcium 8.5 mg/dL (8.4-10.2); Carbon Dioxide 16 mmol/L (22-32); Chloride 115 mmol/L (98-107); Estimated Glomerular Filt Rate > 60 mL/min (>60); Glucose 77 mg/dL (70-100); HEMOLYSIS < 15 (0-50); Lipase 56 U/L (23-300); Potassium 3.6 mmol/L (3.4-5.1); Sodium 137 mmol/L (137-145); Total Protein 6.3 g/dL (6.3-8.2)
[2024-02-18 23:00] VITALS: BP 121/62; PULSE 64; RESP 16; O2SAT 97
[2024-02-18 23:30] VITALS: BP 117/76; PULSE 62; RESP 16; O2SAT 96
[2024-02-19] MEDS: PANTOPRAZOLE 40 MG VIAL IV (00:17)
[2024-02-19] MEDS: MAG HYDROX/ALUMINUM/SIMETH SUS 20 ML, LIDOCAINE VISCOUS 2% 15 ML PO (00:17)
[2024-02-19 00:25] VITALS: BP 126/79; PULSE 64; RESP 16; O2SAT 98
== END 2024-02-19 00:35 | disposition home or self-care (01) ==
PROVIDERS: Emergency Provider Emergency Medicine; PCP Student in an Organized Health Care Education/Training Program
DX: R10.13 Epigastric pain (principal); R07.9 Chest pain, unspecified; Z86.16 Personal history of COVID-19
CPT/HCPCS: 36415; 71045; 80053; 83690; 85025; 93005; 96374; 99284; C9113

== ENCOUNTER 2024-05-14 03:55 | Emergency (ER) | payer OTHER, SELFPAY ==
[2024-05-14 04:02] VITALS: O2SAT 100
[2024-05-14 04:03] VITALS: BP 111/59; PULSE 80; O2SAT 97
[2024-05-14 04:12] VITALS: BP 111/59; PULSE 84; RESP 16; TEMP 36.6; O2SAT 96; BMI 29.6
[2024-05-14 04:31] VITALS: BP 111/57; PULSE 72; O2SAT 97
[2024-05-14 04:53] LABS: Add Manual Diff / Slide Review NO; Basophils Absolute Auto 0 /uL (0-100); Basophils Percent Auto 0.5 % (0-2); Eosinophils Absolute Auto 100 /uL (0-450); Eosinophils Percent Auto 1.8 % (2-4); Hematocrit 36.7 % (36-46); Hemoglobin 12.5 g/dL (12.0-16.0); Lymphocytes Absolute Auto 2400 /uL (1100-4500); Lymphocytes Percent Auto 32.6 % (25-40); Mean Corpuscular HGB Conc 34.1 % (30-36); Mean Corpuscular Hemoglobin 32.5 PG (26-34); Mean Corpuscular Volume 95.2 fL (80-100); Monocytes Absolute Auto 500 /uL (0-900); Monocytes Percent Auto 6.4 % (3-14); Neutrophils Absolute Auto 4300 /uL (1500-7000); Neutrophils Percent Auto 58.7 % (50-75); Platelet Count 329 X10^3/uL (150-400); Red Blood Cell Count 3.85 X10^6/uL (4.0-5.2); Red Cell Distribution Width 13.2 % (11.6-14.8); White Blood Cell Count 7.3 X10^3/uL (4.5-11.0)
[2024-05-14 05:00] VITALS: BP 107/62; PULSE 74; O2SAT 97
[2024-05-14 05:01] LABS: Alanine Aminotransferase 17 IU/L (<35); Albumin 4.7 g/dL (3.5-5.0); Albumin Globulin Ratio 1.5 (1.0-2.8); Alkaline Phosphatase 105 U/L (38-126); Aspartate Aminotransferase 25 IU/L (14-36); BUN Creatinine Ratio 23.5 (6-22); Bilirubin Total 0.4 mg/dL (0.2-1.3); Blood Urea Nitrogen 24 mg/dL (7-17); Calcium 9.3 mg/dL (8.4-10.2); Carbon Dioxide 22 mmol/L (22-32); Chloride 109 mmol/L (98-107); Estimated Glomerular Filt Rate > 60 mL/min (>60); Globulin 3.2 g/dL (1.7-4.1); Glucose 101 mg/dL (70-100); HEMOLYSIS < 15 (0-50); Lipase 104 U/L (23-300); Potassium 3.9 mmol/L (3.4-5.1); Sodium 140 mmol/L (137-145); Total Protein 7.9 g/dL (6.3-8.2)
--- NOTE | 2024-05-14 05:09 | ED_ITS ---
HPI - Abdominal Pain General Chief Complaint: Abdominal Pain Stated Complaint: abd pain and chills Time Seen by Provider: 05/14/24 03:57 Source: patient Mode of arrival: Ambulatory History of Present Illness HPI narrative: 24-year-old female presents for evaluation of midepigastric abdominal pain and nausea. Patient states that she was up her infant son when symptoms began. She states that she dealt with a lot of constipation in and is concerned that this may be related. She still has constipation and states that she tries to do MiraLax, but does not always remember to take it daily. No medications taken prior to arrival. Related Data Home Medications Medication Instructions Recorded Confirmed 1 tab PO DAILY 02/11/24 02/21/24 Previous Rx's Medication Instructions Recorded acetaminophen 325 mg tablet 650 mg (2 x 325 mg) PO Q6H #30 tabs 02/16/24 docusate sodium 100 mg capsule 100 mg PO DAILY #14 caps 02/16/24 enoxaparin 40 mg/0.4 mL 40 mg (0.4 mL) SUBCUT DAILY #8 mL 02/16/24 subcutaneous syringe (Lovenox) ibuprofen 600 mg tablet 600 mg PO Q6H #30 tabs 02/16/24 lanolin (Purelan topical cream) 1 applic topical PRN PRN Skin 02/16/24 protectant #7 grams oxycodone 5 mg capsule 5 mg PO Q8H PRN pain #6 caps 02/16/24 sucralfate 100 mg/mL oral 10 ml PO QACHS #420 mL 02/19/24 suspension (Carafate) ondansetron 4 mg disintegrating 4 mg PO Q8H PRN nausea and 05/14/24 tablet vomiting #30 tabs Allergies Allergy/AdvReac Type Severity Reaction Status Date / Time No Known Drug Allergies Allergy Verified 02/21/24 14:45 Patient History Medical History Anxiety Family History Other Cancer Social History marital status: household members: spouse lives independently: Yes education level: high school occupational status: unemployed and previously employed current occupational exposures/hazards: No hamzah/confucianism: Yazidi Smoking Status: Unknown if ever smoked alcohol intake: former substance use type: marijuana during the past year weight has: increased > 10 lbs well-balanced diet: about half the time additional social history: Dairy intolerance Smoking Status: Unknown if ever smoked Substance Use Type: does not use Exam Initial Vital Signs Initial Vital Signs: Vital Signs Pulse Oximetry 100 05/14/24 04:02 Const: Awake, alert, no acute distress, nontoxic appearing Cardiac: regular rate, regular rhythm RESP: unlabored, clear bilaterally, no wheezing GI: Soft, nontender, nondistended, Pfannenstiel incision well healed MSK: Atraumatic, full range of motion, pulses equal Skin: Warm, Dry, intact, no rashes Neuro: AO x3, CN II-XII grossly intact, moves all extremities Course Orders Ordered: Discontinued Medications Al Hydrox/Mg Hydrox/Simethicone (Mag Hydrox/Alum/Simeth 30 Ml Udc) 30 ml PO NOW ONE Stop: 05/14/24 04:30 Last Admin: 05/14/24 05:11 Dose: 30 ml Documented By: JEFF Lidocaine HCl (Lidocaine Viscous 2% 15 Ml Solution) 15 ml PO NOW ONE Stop: 05/14/24 04:30 Last Admin: 05/14/24 05:11 Dose: 15 ml Documented By: JEFF Ondansetron HCl (Ondansetron 4 Mg/2 Ml Inj) 4 mg IV NOW PRN PRN Reason: Nausea And Vomiting Last Admin: 05/14/24 05:10 Dose: 4 mg Documented By: JEFF Ondansetron HCl (Ondansetron 4 Mg Odt) 4 mg PO NOW PRN PRN Reason: Nausea And Vomiting Ondansetron HCl (Ondansetron 4 Mg/2 Ml Inj) 4 mg IV NOW ONE Stop: 05/14/24 04:30 Vital Signs Vital signs: Vital Signs - 8 hr 05/14/24 04:02 05/14/24 04:03 05/14/24 04:03 Temperature Pulse Rate 80 Respiratory Rate Blood Pressure 111/59 L Pulse Oximetry 100 97 Oxygen Delivery Method 05/14/24 04:12 Temperature 97.8 F Pulse Rate 84 Respiratory Rate 16 Blood Pressure 111/59 L Pulse Oximetry 96 Oxygen Delivery Method Room Air MDM - Abdominal Pain Differential Diagnosis Differential diagnosis: Likely abdominal pain, constipation and small bowel obstruction Lab Data 05/14/24 04:08 05/14/24 04:08 Labs: Lab Results 05/14/24 Range/Units 04:08 WBC 7.3 (4.5-11.0) X10^3/uL RBC 3.85 L (4.0-5.2) X10^6/uL Hgb 12.5 (12.0-16.0) g/dL Hct 36.7 (36-46) % MCV 95.2 (80-100) fL MCH 32.5 (26-34) PG MCHC 34.1 (30-36) % RDW 13.2 (11.6-14.8) % Plt Count 329 (150-400) X10^3/uL Neut % (Auto) 58.7 (50-75) % Lymph % (Auto) 32.6 (25-40) % [place]at % (Auto) 6.4 (3-14) % Eos % (Auto) 1.8 L (2-4) % Baso % (Auto) 0.5 (0-2) % Neut # (Auto) 4300 (9866-5316) /uL Lymph # (Auto) 2400 (0826-9447) /uL Moffat # (Auto) 500 (0-900) /uL Eos # (Auto) 100 (0-450) /uL Baso # (Auto) 0 (0-100) /uL Sodium 140 (137-145) mmol/L Potassium 3.9 (3.4-5.1) mmol/L Chloride 109 H (98-107) mmol/L Carbon Dioxide 22 (22-32) mmol/L BUN 24 H (7-17) mg/dL Creatinine 1.02 (0.52-1.04) mg/dL Estimated GFR > 60 (>60) mL/min BUN/Creatinine Ratio 23.5 H (6-22) Glucose 101 H (70-100) mg/dL Calcium 9.3 (8.4-10.2) mg/dL Total Bilirubin 0.4 (0.2-1.3) mg/dL AST 25 (14-36) IU/L ALT 17 (<35) IU/L Alkaline Phosphatase 105 (38-126) U/L Total Protein 7.9 (6.3-8.2) g/dL Albumin 4.7 (3.5-5.0) g/dL Globulin 3.2 (1.7-4.1) g/dL Albumin/Globulin Ratio 1.5 (1.0-2.8) Lipase 104 (23-300) U/L Point of care testing: Point of Care Testing Test Results Negative Urine Dip Bedside Urine Glucose Negative Bedside Urine Bilirubin - Negative Bedside Urine Ketone - Negative Urine Specific [place] 1.020 Bedside Urine Occult Blood - Negative Bedside Urine pH 6.0 Bedside Urine Protein - Negative Bedside Urine Urobilinogen +/- 1mg Bedside Urine Nitrite - Negative Bedside Urine Leukocytes +/- 15 Esterase MDM Narrative Medical decision making narrative: Well-appearing patient with 1 hour of symptoms. Abdomen soft, nontender, nondistended. Patient 2 months , blood pressure within normal limits. Discharge Plan Departure Patient Disposition: Home Clinical Impression: Abdominal pain, Constipation, Nausea Instructions: DI for Constipation Activity Restrictions/Additional Instructions: You can take the prescribed Zofran for nausea. Take MiraLax or any [id number] laxative as needed for constipation. Follow up as needed with your primary doctor or OBGYN Prescriptions: New ondansetron 4 mg tablet,disintegrating 4 mg PO Q8H PRN (Reason: nausea and vomiting) Qty: 30 0RF No Action sucralfate [Carafate] 100 mg/mL suspension 10 ml PO QACHS Qty: 420 2RF 1 tab PO DAILY acetaminophen 325 mg Tablet 650 mg PO Q6H Qty: 30 0RF docusate sodium 100 mg Capsule 100 mg PO DAILY Qty: 14 0RF ibuprofen 600 mg Tablet 600 mg PO Q6H Qty: 30 0RF Purelan Cream 1 applic topical PRN PRN (Reason: Skin protectant) Qty: 7 3RF oxycodone 5 mg capsule 5 mg PO Q8H PRN (Reason: pain) Qty: 6 0RF enoxaparin [Lovenox] 40 mg/0.4 mL syringe 40 mg SUBCUT DAILY Qty: 8 0RF Referrals: Narcisa Tolliver MD [Primary Care Provider] - Stand Alone Forms: Patient Portal/API
[2024-05-14] MEDS: ONDANSETRON 4 MG/2 ML INJ IV (05:10)
[2024-05-14] MEDS: MAG HYDROX/ALUM/SIMETH 30 ML UDC PO (05:11)
[2024-05-14] MEDS: LIDOCAINE VISCOUS 2% 15 ML SOLUTION PO (05:11)
[2024-05-14 05:19] VITALS: BP 107/62; PULSE 78; RESP 16; O2SAT 96
== END 2024-05-14 05:21 | disposition home or self-care (01) ==
PROVIDERS: Emergency Provider Emergency Medicine; PCP Student in an Organized Health Care Education/Training Program
DX: R10.13 Epigastric pain (principal); K59.00 Constipation, unspecified; R11.0 Nausea
CPT/HCPCS: 36415; 80053; 81003; 81025; 83690; 85025; 96374; 99284; J2405